=== PATIENT | female | born 1980 | race Caucasian/White ===

== ENCOUNTER 2024-01-19 14:03 | Outpatient (RCR) | payer MEDICAID, SELFPAY ==
[2024-01-07 10:29] LABS: Basophils % (Auto) 1 % (0-2.5); Eosinophils # (Auto) 0.3 Thou/mm3 (0.0-0.5); Eosinophils % (Auto) 4 % (0-10); Hematocrit 37.6 % (36.0-46.0); Hemoglobin 13.2 g/dL (12.0-16.0); Immature Granulocytes % (Auto) 0 % (0-0); Immature Granulocytes Auto 0.01 Thou/mm3 (0.00-0.00); Lymphocytes # (Auto) 1.1 Thou/mm3 (1.0-4.8); Lymphocytes % (Auto) 15 % (10-50); Mean Corpuscular HGB Conc 35.1 g/dl (31.0-37.0); Mean Corpuscular Hemoglobin 35.5 pg (25.0-35.0); Mean Corpuscular Volume 101 fL (80-100); Monocytes # (Auto) 0.4 Thou/mm3 (0.0-0.8); Monocytes % (Auto) 6 % (0-12); Neutrophils # (Auto) 5.1 Thou/mm3 (1.8-7.7); Neutrophils % (Auto) 74 % (37-80); Nucleated Red Blood Cell % 0 /100 WBC (0); Platelet Count 260 Thou/mm3 (140-440); RDW Standard Deviation 46.4 fL (36.4-46.3); Red Blood Count 3.72 Miln/mm3 (4.00-5.20)
[2024-01-07 10:48] LABS: Alanine Aminotransferase 11 U/L (10-49); Albumin, Serum 4.5 gm/dL (3.5-5.0); Albumin/Globulin Ratio 1.7 (1.2-2.2); Alkaline Phosphatase 96 U/L (46-116); Anion Gap 3 (7-16); Aspartate Amino Transferase 18 U/L (0-34); BUN/Creatinine Ratio 14 Ratio (12-20); Bilirubin,Total 0.5 mg/dL (0.3-1.2); Blood Urea Nitrogen 11 mg/dL (9-23); Calcium 10.3 mg/dL (8.3-10.6); Calcium (Corrected) 10.3 mg/dL (8.5-10.1); Carbon Dioxide 27.9 mMol/L (20.0-31.0); Chloride 106 mMol/L (98-107); Creatinine (Component) 0.8 mg/dL (0.6-1.3); Globulin 2.7 gm/dL (2.3-3.5); Glucose 90 mg/dL (74-106); Osmolality,Calculated 273 (275-295); Sodium 137 mMol/L (136-145); Total Protein 7.2 gm/dL (5.7-8.2); eGFR > 60 See Note
== END 2024-01-30 23:59 | disposition home or self-care (01) ==
LOC: SCTC 14:03
PROVIDERS: PCP Nurse Practitioner Family; Referring Provider Nurse Practitioner Family; Visit Provider Internal Medicine Hematology & Oncology
DX: C50.212 Malignant neoplasm of upper-inner quadrant of left female breast (principal); Z17.421 Hormone receptor negative with human epidermal growth factor receptor 2 negative status; R07.89 Other chest pain; Z92.3 Personal history of irradiation; Z90.12 Acquired absence of left breast and nipple; Z92.21 Personal history of antineoplastic chemotherapy; R22.2 Localized swelling, mass and lump, trunk
CPT/HCPCS: 36591; 80053; 85025; 99212; A4216; J1642; G0463

== ENCOUNTER 2024-02-02 08:01 | Outpatient (RCR) | payer MEDICAID, SELFPAY | END 2024-03-01 23:59 | disposition home or self-care (01) | LOC: SCTC 08:01 | PROVIDERS: PCP Physician Assistant; Referring Provider Physician Assistant; Visit Provider Internal Medicine Hematology & Oncology | DX: C50.212 Malignant neoplasm of upper-inner quadrant of left female breast (principal); Z17.0 Estrogen receptor positive status [ER+]; Z17.21 Progesterone receptor positive status; Z17.32 Human epidermal growth factor receptor 2 negative status | CPT/HCPCS: 36591; A4216; J1642 ==

== ENCOUNTER → 2024-02-04 | Outpatient (CLI) | payer MEDICAID, SELFPAY ==
--- NOTE | 2024-02-04 14:45 | XR_ITS ---
Examination: MRI abdomen with intravenous contrast. MRI abdomen without intravenous contrast. Date and time of exam: February 04, 2024 1549 hours INDICATIONS: Diagnosis malignant neoplasm upper inner quadrant left female breast, 31 mm hypermetabolic mass posterior to the spleen on PET CT scan 2023 Technique: Multiple axial, sagittal and coronal sections of the abdomen obtained. Transverse images, TR 6020, TE 107. T1 weighted transverse images, TR 582, TE 9.5. T2-weighted sagittal images, TR 4000, TE 105. T2-weighted sagittal images, TR 4000, TE 5. Coronal images, TR 4210, TE 107. Axial and coronal images are obtained post 19 cc intravenous injection, gadolinium. Findings: No focal liver lesions Soft tissue density is present above and posterior to the spleen, coronal image 17 and posterior to the spleen, axial image 13, measuring at least 4.3 x 3.8 cm in this area is hypermetabolic on the PET/CT study No hydronephrosis Postcontrast images demonstrate irregular enhancement of this masslike area, post contrast axial image 13 Aorta is normal in size No ascites No bowel obstruction IMPRESSION: 4.3 x 3.8 cm masslike area is present above and posterior to the spleen which shows irregular enhancement, differential would include metastatic soft tissue mass
== END | disposition home or self-care (01) ==
PROVIDERS: PCP Nurse Practitioner Family; Referring Provider Internal Medicine Hematology & Oncology; Visit Provider Internal Medicine Hematology & Oncology
DX: D73.89 Other diseases of spleen (principal); C50.212 Malignant neoplasm of upper-inner quadrant of left female breast
CPT/HCPCS: 74183; A9579

== ENCOUNTER 2024-03-28 06:56 | Outpatient (RCR) | payer MEDICAID, SELFPAY ==
--- NOTE | 2024-03-23 14:13 | CTCFLWUP_ITS ---
Patient: LYLA GARCIA : 1980 Page 2 of 2 FOLLOW UP NOTE DATE OF SERVICE: 03/23/2024 NAME: LYLA GARCIA ACCOUNT: [id number] : 1980 AGE: 44 INTERVAL HISTORY: Patient is doing well. She is here to discuss MRI results. ONCOLOGY HISTORY: DIAGNOSIS: Malignant neoplasm of upper-inner quadrant of left female breast [ICD10] C50.212 DATE OF DIAGNOSIS: 07/24/2021 STAGE/TNM: Stage II breast cancer triple negative TREATMENT HISTORY: Care?Plan Start?Date Cycle Day Intent TNBC?Pem?17?cy?TaxCar?4?cy?AC?4?cy?Keynote?522 09/18/2021 1 21 Curative?(primary) AC-Taxol?Dose?Dense?q?2wks 02/20/2022 1 14 Curative?(adjuvant) Taxol?80?mg/m2?wkly?for?12?weeks?adj 05/21/2022 1 7 Curative?(adjuvant) Taxol?80?mg/m2?wkly?for?12?weeks?adj 06/17/2022 1 7 Curative?(adjuvant) HISTORY OF PRESENT ILLNESS: Lyla Garcia is a 44-year-old ENG speaking female without any family history of breast can cers has the following oncology history. July 2020: Patient started noticing a lump in the upper inner quadrant of the left breast which was a ssociated with pain. Due to insurance reasons she was not able to see her physicians. 05/21/2021: Bilateral screening mammogram- 06/04/2021: Left breast diagnostic mammogram as well as ultrasound? 07/24/2021: Ms. Garcia had ultrasound-guided left breast biopsy and postbiopsy marker clip placement . 09/01/2021: CT scan of the chest abdomen and pelvis with IV contrast 09/06/2021: PET/CT scan 09/17/2021: AST 17, ALT 17, alkaline phosphatase 64 09/18/2021: Ms. Garcia received first cycle of pembrolizumab, Taxol and carboplatin in the adjuvant setting 10/08/2021: AST 22, ALT 31, alkaline phosphatase 66 10/09/2021: Ms. Garcia was treated with second cycle of pembrolizumab, Taxol and carboplatin based chemotherapy. Unfortunately she was having trouble tolerating the chemotherapy. Her LFTs have signi ficantly worsened. Chemotherapy was discontinued and patient was referred to Dr. Gregg Simpson for definitiv e surgery. 10/22/2021: AST 53, ALT 190, alkaline phosphatase 130. 10/28/2021 AST 435, ALT 394, alkaline phosphatase 207 10/29/2021 AST 239, ALT 366, alkaline phosphatase 208. 10/30/2021 AST 119, ALT 277, alkaline phosphatase 199 11/05/2021: AST 21, ALT 41, alkaline phosphatase 110 12/10/2021: Left-sided total mastectomy, sentinel node biopsy followed by axillary dissection. 03/19/2022: BRCA 1and2 testing? 04/02/2022 - 05/19/2022: Ms. Garcia had 4 cycles of dose dense AC chemotherapy in the adjuvant setting . 06/10/2022 - 06/24/2022: Ms. Garcia had 3 cycles of weekly Taxol. 06/25/2022: She was admitted to the hospital due to abdominal pain. Had exploratory laparotomy and re section of the ischemic left colon and closure of the distal stump as well as diuretic and loop colos new on 06/30/2022 Ms. Garcia had a protracted recovery.. She was eventually discharged from the [facility] on 08/19/2022. 05/14/2023: PET/CT scan? 05/20/2023: Ultrasound-guided biopsy of the left chest wall lesion [facility] 06/15/2023: CT-guided biopsy of the right lobe liver lesion? 07/04/2023: MRI of the abdomen with and without contrast 07/28/2023: Resection of the left chest wall lesion? 08/26/2023 - 10/27/2023: The patient had radiation therapy to the left chest wall, left left supraclavi cular area. 10/06/2023: PET/CT scan 10/15/2023: X-ray ribs showed osteoblastic lesion posterior right 10th rib. 10/28/2023: CT scan of the abdomen and pelvis with IV contrast 11/06/2023: Bone scan? 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 Tobacco?Pack?per?Day:?1 Tobacco?Use?Years:?20 ETOH?Use:?social Drug?Note:?denies Social History Note:?lives with and child [employer] HISTORY: Menarche?-?Age:?9 Menopause:?04/21/21 :?3 Live?Births:?3 Age?1st?:?15 MEDICATIONS: 1. levothyroxine - 100 mcg 1 tab Daily 2. lorazepam - 0.5 mg 1 tab Three times a day Medications Last Reconciled by Brook Alaniz MA on 03/23/2024 ALLERGIES: No Known Drug Allergies REVIEW OF SYSTEMS: A complete 14-point review of systems was performed and is negative except as noted in interval histo ry. PHYSICAL EXAMINATION: VITAL SIGNS: Temperature?99.8, B/P?116/79, Oxygen?Saturation?98% Weight?137?lbs (Change?since?03/10/24: ?-2.4?lbs) PAIN: 7 - Between severe and very severe pain Alert oriented x 4 MOUTH: Oral cavity is dry. CHEST: No palpable masses or concerning lymph nodes CARDIAC: Rhythm regular, no murmurs or gallops present. ABDOMEN: Soft. No hepatomegaly. No splenomegaly. EXTREMITIES: No pedal edema or cyanosis. LABORATORY DATA: I have personally reviewed and interpreted each of the patient?s relevant lab tests, abnormal finding s are below: Date 01/07/24 ??GLUCOSE,RANDOM?(mg/dL) 90 ??BLOOD?UREA?NITROGEN?(mg/dL) 11 ??CREATININE?(mg/dL) 0.80 ??SODIUM?(mmol/L) 137 ??POTASSIUM?(mmol/L) 4.0 ??CHLORIDE?(mmol/L) 106 ??CrCl?(CandG)?(ml/min) 84.57 ??AST/SGOT?(Unit/L) 18 ??ALT/SGPT?(Unit/L) 11 ??ALKALINE?PHOSPHATASE?(Unit/L) 96 ??BILIRUBIN,?TOTAL?(mg/dL) 0.5 ??PROTEIN?TOTAL?(gm/dl) 7.2 ??ALBUMIN,?SERUM?(gm/dl) 4.5 ??GLOBULIN?(gm/dl) 2.7 ??ALBUMIN/GLOBULIN?RATIO 1.7 ??CALCIUM,?SERUM?(mg/dL) 10.3 ??CALCIUM?SERUM?(CORRECTED)?(mg/dL) 10.3?H ASSESSMENT/PLAN: Triple negative breast cancer Patient was diagnosed in 2021 and was given keynote trial based chemotherapy Patient developed liver failure from Keytruda and treatment was held Patient resumed Taxol chemotherapy after her breast surgery After receiving the cycle she had intestinal obstruction and underwent a colectomy No further chemo was given Patient then had recurrence in July 2023 which was resected with wide margins negative. It was the sa ms triple negative breast cancer and has not NTRK mutation Patient's recent MRI and PET CT scan show persistent mass around the spleen The recent MRI compared to the MRI 3 months ago shows smaller lesion Discussed with Ms. Garcia that biopsy can become obtained IR referral placed for biopsy of the lesion behind spleen Not there are testing for residual tumor is negative PET CT scan is pending I will see his patient back with biopsy results and PET scan CBC CMP IR referral for biopsy RETURN TO CLINIC: 4 weeks BILLING AND COMPLIANCE: I reviewed external records from providers outside my specialty as summarized above. I spent a total of 50 minutes on this patient?s care on the day of their visit excluding time spent related to any bi lled procedures. This time includes time spent with the patient as well as time spent documenting in the medical record, reviewing patients records and tests, obtaining history, placing orders, communi cating with other healthcare professionals, counseling the patient, family or caregiver, and/or care coordination for the diagnoses above. Electronically Signed by: Devin Santiago MD T: 2:11 PM CC: PCP: Devin Santiago Referring: Devin Santiago This document was completed utilizing speech recognition software. Grammatical errors, random word in sertions, pronoun errors, and incomplete sentences are an occasional consequence of this system due t o software limitations, ambient noise, and hardware issues. Any formal questions or concerns about e content, text or information contained within the body of this dictation should be directly address ed to the provider for clarification.
== END 2024-04-01 23:59 | disposition home or self-care (01) ==
LOC: SCTC 06:56
PROVIDERS: PCP Nurse Practitioner Family; Referring Provider Internal Medicine Hematology & Oncology; Visit Provider Internal Medicine Hematology & Oncology
DX: C50.212 Malignant neoplasm of upper-inner quadrant of left female breast (principal); Z17.421 Hormone receptor negative with human epidermal growth factor receptor 2 negative status
CPT/HCPCS: 96523; 99212; A4216; J1642; G0463

== ENCOUNTER → 2024-03-28 | Outpatient (CLI) | payer MEDICAID, SELFPAY ==
--- NOTE | 2024-03-28 08:07 | XR_ITS ---
EXAMINATION: PET/CT FUSION SKULL TO THIGH EXAM DATE AND TIME: March 28, 2024 1446 hours Comparison January 07, 2024 INDICATIONS: Diagnosis breast cancer, post treatment restaging CTDI:vol (mGy) 3.45 DLP: (mGycm) 314.82 PROCEDURE: 15.52 mCi FDG was administered intravenously To allow for distribution and uptake of radiotracer, the patient was allowed to rest quietly in a shielded room. Imaging was performed on an integrated 16-slice PET/CT scanner, with scanning from the skull base to the mid thigh. Serum blood glucose at the time of the injection was measured 96 mg/dL. CT scanning was performed without oral or intravenous contrast material. FINDINGS: Head and Neck: There is no lev hypermetabolism in the neck. The visualized portions of the brain are normal in appearance on CT. Chest: Mild diffuse hypermetabolic activity in the left breast which may represent posttreatment findings Non hypermetabolic 8mm pulmonary nodule left upper lobe image 78 Abdomen and Pelvis: No change in the hypermetabolic focus posterior to the spleen, 30 mm Musculoskeletal: Marrow uptake is within normal range. IMPRESSION: Interval 8 mm non hypermetabolic pulmonary nodule left upper lobe Persistent 30 mm hypermetabolic activity posterior to the spleen Recommend repeat high resolution CT chest abdomen pelvis post intravenous contrast follow-up
== END | disposition home or self-care (01) ==
PROVIDERS: PCP Nurse Practitioner Family; Referring Provider Internal Medicine Hematology & Oncology; Visit Provider Internal Medicine Hematology & Oncology
DX: R91.1 Solitary pulmonary nodule (principal); D73.89 Other diseases of spleen; C50.212 Malignant neoplasm of upper-inner quadrant of left female breast
CPT/HCPCS: 78815; A9552

== ENCOUNTER 2024-04-27 07:52 | Outpatient (RCR) | payer MEDICAID, SELFPAY | END 2024-04-29 23:59 | disposition home or self-care (01) | LOC: SCTC 07:52 | PROVIDERS: PCP Nurse Practitioner Family; Referring Provider Nurse Practitioner Family; Visit Provider Internal Medicine Hematology & Oncology | DX: C50.212 Malignant neoplasm of upper-inner quadrant of left female breast (principal); Z17.421 Hormone receptor negative with human epidermal growth factor receptor 2 negative status | CPT/HCPCS: 36591; A4216; J1642 ==

== ENCOUNTER 2024-06-15 14:36 | Outpatient (RCR) | payer MEDICAID, SELFPAY ==
--- NOTE | 2024-06-20 20:02 | CTCFLWUP_ITS ---
Patient: LYLA GARCIA : 1980 Page 10 of 10 FOLLOW UP NOTE DATE OF SERVICE: 06/01/2024 NAME: LYLA GARCIA ACCOUNT: [id number] : 1980 AGE: 44 INTERVAL HISTORY: Patient is doing well. Patient here to discuss biopsy results . 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 July 2020: Patient started noticing a lump in the upper inner quadrant of the left breast which was associated with pain. Due to insurance reasons she was not able to see her physicians. 05/21/2021: Bilateral screening mammogram- 06/04/2021: Left breast diagnostic mammogram as well as ultrasound? 07/24/2021: Ms. Garcia had ultrasound-guided left breast biopsy and postbiopsy marker clip placement. 09/01/2021: CT scan of the chest abdomen and pelvis with IV contrast 09/06/2021: PET/CT scan 09/17/2021: AST 17, ALT 17, alkaline phosphatase 64 09/18/2021: Ms. Garcia received first cycle of pembrolizumab, Taxol and carboplatin in the adjuvant setting 10/08/2021: AST 22, ALT 31, alkaline phosphatase 66 10/09/2021: Ms. Garcia was treated with second cycle of pembrolizumab, Taxol and carboplatin based chemotherapy. Unfortunately she was having trouble tolerating the chemotherapy. Her LFTs have significantly worsened. Chemotherapy was discontinued and patient was referred to Dr. Gregg Simpson for definitive surgery. 10/22/2021: AST 53, ALT 190, alkaline phosphatase 130. 10/28/2021 AST 435, ALT 394, alkaline phosphatase 207 10/29/2021 AST 239, ALT 366, alkaline phosphatase 208. 10/30/2021 AST 119, ALT 277, alkaline phosphatase 199 11/05/2021: AST 21, ALT 41, alkaline phosphatase 110 12/10/2021: Left-sided total mastectomy, sentinel node biopsy followed by axillary dissection. 03/19/2022: BRCA 1and2 testing? 04/02/2022 - 05/19/2022: Ms. Garcia had 4 cycles of dose dense AC chemotherapy in the adjuvant setting. 06/10/2022 - 06/24/2022: Ms. Garcia had 3 cycles of weekly Taxol. 06/25/2022: She was admitted to the hospital due to abdominal pain. Had exploratory laparotomy and resection of the ischemic left colon and closure of the distal stump as well as diuretic and loop colostomy on 06/30/2022 Ms. Garcia had a protracted recovery.. She was eventually discharged from the hospital on 08/19/2022. 05/14/2023: PET/CT scan? 05/20/2023: Ultrasound-guided biopsy of the left chest wall lesion 05/28/2023: [facility] Cdx study? 06/15/2023: CT-guided biopsy of the right lobe liver lesion? 07/04/2023: MRI of the abdomen with and without contrast 07/28/2023: Resection of the left chest wall lesion? 08/26/2023 - 10/27/2023: The patient had radiation therapy to the left chest wall, left left supraclavicular area. 10/06/2023: PET/CT scan 10/15/2023: X-ray ribs showed osteoblastic lesion posterior right 10th rib. 10/28/2023: CT scan of the abdomen and pelvis with IV contrast 11/06/2023: Bone scan? 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 Tobacco?Pack?per?Day:?1 Tobacco?Use?Years:?20 ETOH?Use:?social Drug?Note:?denies Social History Note:?lives with and child [employer] HISTORY: Menarche?-?Age:?9 Menopause:?04/21/21 :?3 Live?Births:?3 Age?1st?:?15 MEDICATIONS: 1. hydrocodone-acetaminophen - 5-325 mg 1 tab q6 2. levothyroxine - 100 mcg 1 tab Daily 3. lorazepam - 0.5 mg 1 tab Three times a day 4. ondansetron - 8 mg 1 tab three times a day Medications Last Reconciled by Delmis Love RN on 06/08/2024 ALLERGIES: No Known Drug Allergies REVIEW OF SYSTEMS: A complete 14-point review of systems was performed and is negative except as noted in interval history. PHYSICAL EXAMINATION: VITAL SIGNS: Temperature?99, B/P?127/86, Oxygen?Saturation?96% Weight?149?lbs PAIN: 0 - No pain ECOG Performance Status: None Alert oriented x 4 MOUTH: Oral cavity is dry. CHEST: No palpable masses or concerning lymph nodes CARDIAC: Rhythm regular, no murmurs or gallops present. ABDOMEN: Soft. No hepatomegaly. No splenomegaly. EXTREMITIES: No pedal edema or cyanosis. LABORATORY DATA: I have personally reviewed and interpreted each of the patient?s relevant lab tests, abnormal findings are below: Date 11/13/23 01/07/24 ??WHITE?BLOOD?COUNT?(Thou/mm3) 7.3 7.0 ??RED?BLOOD?COUNT?(Miln/mm3) 3.88?L 3.72?L ??HEMOGLOBIN?(gm/dl) 13.5 13.2 ??HEMATOCRIT?(%) 39.5 37.6 ??PLATELET?COUNT?(Thou/mm3) 182 260 ??NEUTROPHILS?%,?AUTO?(%) 78 74 ??LYMPH?%,?AUTO?(%) 10 15 ??NEUTROPHILS,?AUTO?(Thou/mm3) 5.7 5.1 ??GLUCOSE,RANDOM?(mg/dL) 83 90 ??BLOOD?UREA?NITROGEN?(mg/dL) 6?L 11 ??CREATININE?(mg/dL) 0.80 0.80 ??SODIUM?(mmol/L) 138 137 ??POTASSIUM?(mmol/L) 3.7 4.0 ??CHLORIDE?(mmol/L) 107 106 ??CrCl?(CandG)?(ml/min) 84.83 84.57 ??AST/SGOT?(Unit/L) 18 18 ??ALT/SGPT?(Unit/L) 11 11 ??ALKALINE?PHOSPHATASE?(Unit/L) 98 96 ??BILIRUBIN,?TOTAL?(mg/dL) 0.3 0.5 ??PROTEIN?TOTAL?(gm/dl) 7.5 7.2 ??ALBUMIN,?SERUM?(gm/dl) 4.5 4.5 ??GLOBULIN?(gm/dl) 3.0 2.7 ??ALBUMIN/GLOBULIN?RATIO 1.5 1.7 ??CALCIUM,?SERUM?(mg/dL) 10.4 10.3 ??CALCIUM?SERUM?(CORRECTED)?(mg/dL) 10.4?H 10.3?H ASSESSMENT/PLAN: Triple negative breast cancer Patient was diagnosed in 2021 and was given keynote trial based chemotherapy Patient developed liver failure from Keytruda and treatment was held Patient resumed Taxol chemotherapy after her breast surgery After receiving the cycle she had intestinal obstruction and underwent a colectomy No further chemo was given Patient then had recurrence in July 2023 which was resected with wide margins negative. It was the same triple negative breast cancer and has not NTRK mutation Patient's recent MRI and PET CT scan show persistent mass around the spleen The recent MRI compared to the MRI 3 months ago shows smaller lesion Discussed with Ms. Garcia that biopsy can become obtained IR referral placed for biopsy of the lesion behind spleen and came back as negative Naterrra testing is positive Will biopsy lung lesions Patient do not want to do chemotherapy and want to wait for confirmed positive results CBC CMP IR referral for biopsy ORDERS: Order # Description [id number] MD Follow Up 3 Months [id number] MD Follow Up 6 Month RETURN TO CLINIC: 2 months BILLING AND COMPLIANCE: I reviewed external records from providers outside my specialty as summarized above. I spent a total of 50 minutes on this patient?s care on the day of their visit excluding time spent related to any billed procedures. This time includes time spent with the patient as well as time spent documenting in the medical record, reviewing patients records and tests, obtaining history, placing orders, communicating with other healthcare professionals, counseling the patient, family or caregiver, and/or care coordination for the diagnoses above. Electronically Signed by: {Object.Sanct_ID*PnP.NameFL@M}, {Object.Sanct_ID*PnP.Suffix@U} D: {Object.Sanct_Date} T: {Object.Sanct_Time} CC: PCP: Breanne Headley Referring: Breanne Headley This document was completed utilizing speech recognition software. Grammatical errors, random word insertions, pronoun errors, and incomplete sentences are an occasional consequence of this system due to software limitations, ambient noise, and hardware issues. Any formal questions or concerns about the content, text or information contained within the body of this dictation should be directly addressed to the provider for clarification.
== END 2024-06-29 23:59 | disposition home or self-care (01) ==
LOC: SCTC 14:36
PROVIDERS: PCP Nurse Practitioner Family; Referring Provider Nurse Practitioner Family; Visit Provider Radiology Therapeutic Radiology
DX: Z08 Encounter for follow-up examination after completed treatment for malignant neoplasm (principal); Z85.3 Personal history of malignant neoplasm of breast; Z92.21 Personal history of antineoplastic chemotherapy; D73.89 Other diseases of spleen; R91.1 Solitary pulmonary nodule; Z15.09 Genetic susceptibility to other malignant neoplasm; Z90.12 Acquired absence of left breast and nipple; Z92.3 Personal history of irradiation
CPT/HCPCS: 96523; 99212; A4216; J1642; G0463

== ENCOUNTER 2024-07-28 07:49 | Outpatient (RCR) | payer MEDICAID, SELFPAY ==
[2024-07-28 08:54] LABS: Basophils # (Auto) 0.1 Thou/mm3 (0.0-0.2); Basophils % (Auto) 1 % (0-2.5); Eosinophils # (Auto) 0.4 Thou/mm3 (0.0-0.5); Eosinophils % (Auto) 6 % (0-10); Hemoglobin 13.3 g/dL (12.0-16.0); Immature Granulocytes % (Auto) 0 % (0-0); Immature Granulocytes Auto 0.01 Thou/mm3 (0.00-0.00); Lymphocytes % (Auto) 15 % (10-50); Mean Corpuscular Hemoglobin 33.7 pg (25.0-35.0); Mean Corpuscular Volume 96 fL (80-100); Monocytes # (Auto) 0.4 Thou/mm3 (0.0-0.8); Monocytes % (Auto) 7 % (0-12); Neutrophils # (Auto) 4.6 Thou/mm3 (1.8-7.7); Neutrophils % (Auto) 71 % (37-80); Nucleated Red Blood Cell % 0 /100 WBC (0); Platelet Count 284 Thou/mm3 (140-440); RDW Standard Deviation 42.8 fL (36.4-46.3); Red Blood Count 3.95 Miln/mm3 (4.00-5.20); White Blood Count 6.4 Thou/mm3 (3.6-11.0)
[2024-07-28 09:16] LABS: Alanine Aminotransferase 10 U/L (10-49); Albumin, Serum 4.5 gm/dL (3.5-5.0); Albumin/Globulin Ratio 1.8 (1.2-2.2); Alkaline Phosphatase 92 U/L (46-116); Anion Gap 7 (7-16); Aspartate Amino Transferase 17 U/L (0-34); BUN/Creatinine Ratio 12 Ratio (12-20); Bilirubin,Total 0.5 mg/dL (0.3-1.2); Blood Urea Nitrogen 11 mg/dL (9-23); Calcium 9.7 mg/dL (8.3-10.6); Calcium (Corrected) 9.7 mg/dL (8.5-10.1); Carbon Dioxide 26.2 mMol/L (20.0-31.0); Chloride 107 mMol/L (98-107); Creatinine (Component) 0.9 mg/dL (0.6-1.3); Globulin 2.5 gm/dL (2.3-3.5); Glucose 104 mg/dL (74-106); Osmolality,Calculated 278 (275-295); Potassium 3.8 mMol/L (3.4-5.1); Sodium 140 mMol/L (136-145); eGFR > 60 See Note
[2024-07-28 09:32] LABS: CA 15-3 6.4 U/mL (<32.4)
== END 2024-07-30 23:59 | disposition home or self-care (01) ==
LOC: SCTC 07:49
PROVIDERS: Referring Provider Nurse Practitioner Family; Visit Provider Internal Medicine Hematology & Oncology
DX: C50.212 Malignant neoplasm of upper-inner quadrant of left female breast (principal); Z17.421 Hormone receptor negative with human epidermal growth factor receptor 2 negative status; Z90.12 Acquired absence of left breast and nipple; R91.1 Solitary pulmonary nodule; Z92.3 Personal history of irradiation
CPT/HCPCS: 36591; 80053; 85025; 86300; A4216; J1642

== ENCOUNTER 2024-08-04 13:01 | Outpatient (RCR) | payer MEDICAID, SELFPAY ==
--- NOTE | 2024-08-04 16:12 | CTCFLWUP_ITS ---
Patient: LYLA GARCIA : 1980 Page 2 of 2 FOLLOW UP NOTE DATE OF SERVICE: 08/04/2024 NAME: LYLA GARCIA ACCOUNT: [id number] : 1980 AGE: 44 INTERVAL HISTORY: Subjective: Chief Complaint Fatigue ( Just tired, always tired ), confusion episode with difficulty understanding speech 2 weeks ago, dizziness History of Present Illness Marilyn Arita, a patient with a history of stage 4 triple-negative breast cancer, presents for follow-up. She reports persistent fatigue and a recent episode of confusion and disorientation. The patient's primary complaint is ongoing fatigue, which she describes as always tired. Additionally, she experienced an unusual episode about two weeks ago characterized by sudden onset confusion. During this episode, she had difficulty understanding others and was unable to speak coherently. The patient denies hallucinations but states that nothing made sense during this event. She likens the experience to stroke-like symptoms. The patient also reports recent dizziness. Regarding her cancer status, the patient notes that her recent Netera test came back negative, which is an improvement from her previous result of 0.008. She has not been on any recent cancer treatment. Her past treatments include a total mastectomy followed by axillary dissection, 3 cycles of adjuvant Taxol, and a colectomy. The patient also mentions a previous adverse reaction to Keytruda, which resulted in colitis. In terms of lifestyle, the patient reports watching her diet and avoiding processed foods as recommended by her healthcare provider. Medications and Supplements - Taxol - 3 cycles of adjuvant treatment - Keytruda - Caused colitis as a side effect Review of Systems General: Positive for fatigue. HEENT: Positive for confusion. Neurological: Positive for dizziness. Psychiatric: Positive for hallucinations. Objective: Laboratory, Imaging, and Diagnostic Test Results - Netera test: - Previous result: 0.008 - Current result: Negative - PET scan: - Finding: small nodule in the lung and in the spleen area - MRI: - Finding: Something noted in the suppurine area (previous scan) ONCOLOGY HISTORY: DIAGNOSIS: Malignant neoplasm of upper-inner quadrant of left female breast [ICD10] C50.212 DATE OF DIAGNOSIS: 07/24/2021 STAGE/TNM: Stage II breast cancer triple negative TREATMENT HISTORY: Care?Plan Start?Date Cycle Day Intent TNBC?Pem?17?cy?TaxCar?4?cy?AC?4?cy?Keynote?522 09/18/2021 1 21 Curative?(primary) AC-Taxol?Dose?Dense?q?2wks 02/20/2022 1 14 Curative?(adjuvant) Taxol?80?mg/m2?wkly?for?12?weeks?adj 05/21/2022 1 7 Curative?(adjuvant) Taxol?80?mg/m2?wkly?for?12?weeks?adj 06/17/2022 1 7 Curative?(adjuvant) HISTORY OF PRESENT ILLNESS: Lyla Garcia is a 44-year-old ENG speaking female without any family history of breast cancers has the following oncology history. July 2020: Patient started noticing a lump in the upper inner quadrant of the left breast which was associated with pain. Due to insurance reasons she was not able to see her physicians. 05/21/2021: Bilateral screening mammogram- 06/04/2021: Left breast diagnostic mammogram as well as ultrasound? 07/24/2021: Ms. Garcia had ultrasound-guided left breast biopsy and postbiopsy marker clip placement. 09/01/2021: CT scan of the chest abdomen and pelvis with IV contrast 09/06/2021: PET/CT scan 09/17/2021: AST 17, ALT 17, alkaline phosphatase 64 09/18/2021: Ms. Garcia received first cycle of pembrolizumab, Taxol and carboplatin in the adjuvant setting 10/08/2021: AST 22, ALT 31, alkaline phosphatase 66 10/09/2021: Ms. Garcia was treated with second cycle of pembrolizumab, Taxol and carboplatin based chemotherapy. Unfortunately she was having trouble tolerating the chemotherapy. Her LFTs have significantly worsened. Chemotherapy was discontinued and patient was referred to Dr. Gregg Simpson for definitive surgery. 10/22/2021: AST 53, ALT 190, alkaline phosphatase 130. 10/28/2021 AST 435, ALT 394, alkaline phosphatase 207 10/29/2021 AST 239, ALT 366, alkaline phosphatase 208. 10/30/2021 AST 119, ALT 277, alkaline phosphatase 199 11/05/2021: AST 21, ALT 41, alkaline phosphatase 110 12/10/2021: Left-sided total mastectomy, sentinel node biopsy followed by axillary dissection. 03/19/2022: BRCA 1and2 testing? 04/02/2022 - 05/19/2022: Ms. Garcia had 4 cycles of dose dense AC chemotherapy in the adjuvant setting. 06/10/2022 - 06/24/2022: Ms. Garcia had 3 cycles of weekly Taxol. 06/25/2022: She was admitted to the hospital due to abdominal pain. Had exploratory laparotomy and resection of the ischemic left colon and closure of the distal stump as well as diuretic and loop colostomy on 06/30/2022 Ms. Garcia had a protracted recovery.. She was eventually discharged from the hospital on 08/19/2022. 05/14/2023: PET/CT scan? 05/20/2023: Ultrasound-guided biopsy of the left chest wall lesion [facility]? 06/15/2023: CT-guided biopsy of the right lobe liver lesion? 07/04/2023: MRI of the abdomen with and without contrast 07/28/2023: Resection of the left chest wall lesion? 08/26/2023 - 10/27/2023: The patient had radiation therapy to the left chest wall, left left supraclavicular area. 10/06/2023: PET/CT scan 10/15/2023: X-ray ribs showed osteoblastic lesion posterior right 10th rib. 10/28/2023: CT scan of the abdomen and pelvis with IV contrast 11/06/2023: Bone scan? 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 hydrocodone-acetaminophen - 5-325 mg 1 tab q6 2. levothyroxine - 100 mcg 1 tab Daily 3. lorazepam - 0.5 mg 1 tab Three times a day 4. ondansetron - 8 mg 1 tab three times a day Medications Last Reconciled by Candace Harley MA on 08/04/2024 ALLERGIES: No Known Drug Allergies REVIEW OF SYSTEMS: A complete 14-point review of systems was performed and is negative except as noted in interval history. PHYSICAL EXAMINATION: VITAL SIGNS: Temperature?98.2, B/P?117/77, Oxygen?Saturation?93% Weight?141?lbs (Change?since?07/28/24:?-0.4?lbs) PAIN: 0 - No pain Alert oriented x 4 MOUTH: Oral cavity is dry. CHEST: No palpable masses or concerning lymph nodes CARDIAC: Rhythm regular, no murmurs or gallops present. ABDOMEN: Soft. No hepatomegaly. No splenomegaly. EXTREMITIES: No pedal edema or cyanosis. LABORATORY DATA: I have personally reviewed and interpreted each of the patient?s relevant lab tests, abnormal findings are below: Date 01/07/24 07/28/24 ??WHITE?BLOOD?COUNT?(Thou/mm3) 7.0 6.4 ??RED?BLOOD?COUNT?(Miln/mm3) 3.72?L 3.95?L ??HEMOGLOBIN?(gm/dl) 13.2 13.3 ??HEMATOCRIT?(%) 37.6 38.0 ??PLATELET?COUNT?(Thou/mm3) 260 284 ??NEUTROPHILS?%,?AUTO?(%) 74 71 ??LYMPH?%,?AUTO?(%) 15 15 ??NEUTROPHILS,?AUTO?(Thou/mm3) 5.1 4.6 ??GLUCOSE,RANDOM?(mg/dL) 90 104 ??BLOOD?UREA?NITROGEN?(mg/dL) 11 11 ??CREATININE?(mg/dL) 0.80 0.90 ??SODIUM?(mmol/L) 137 140 ??POTASSIUM?(mmol/L) 4.0 3.8 ??CHLORIDE?(mmol/L) 106 107 ??CrCl?(CandG)?(ml/min) 84.57 79.08 ??AST/SGOT?(Unit/L) 18 17 ??ALT/SGPT?(Unit/L) 11 10 ??ALKALINE?PHOSPHATASE?(Unit/L) 96 92 ??BILIRUBIN,?TOTAL?(mg/dL) 0.5 0.5 ??PROTEIN?TOTAL?(gm/dl) 7.2 7.0 ??ALBUMIN,?SERUM?(gm/dl) 4.5 4.5 ??GLOBULIN?(gm/dl) 2.7 2.5 ??ALBUMIN/GLOBULIN?RATIO 1.7 1.8 ??CALCIUM,?SERUM?(mg/dL) 10.3 9.7 ??CALCIUM?SERUM?(CORRECTED)?(mg/dL) 10.3?H 9.7 ASSESSMENT/PLAN: Triple negative breast cancer Patient was diagnosed in 2021 and was given keynote trial based chemotherapy Patient developed liver failure from Keytruda and treatment was held Patient resumed Taxol chemotherapy after her breast surgery After receiving the cycle she had intestinal obstruction and underwent a colectomy No further chemo was given Patient then had recurrence in July 2023 which was resected with wide margins negative. It was the same triple negative breast cancer and has not NTRK mutation Patient's recent MRI and PET CT scan show persistent mass around the spleen The recent MRI compared to the MRI 3 months ago shows smaller lesion Discussed with Ms. Garcia that biopsy can become obtained IR referral placed for biopsy of the lesion behind spleen and came back as negative Triple-negative breast cancer in remission Assessment: Patient with a history of triple-negative breast cancer, status post parietal quadrant total mastectomy with axillary dissection and 3 cycles of adjuvant Taxol. Recent Netera test results have come back negative (previously 0.008), suggesting complete remission. The Netera test is considered to have high sensitivity and specificity (89% specificity, sensitivity higher than 90%). However, it is noted that the test is not 100% accurate. A previous PET scan showed a concerning 38-millimeter small nodule, which requires follow-up imaging to assess for growth or changes. Plan: - Order CT scan of the chest to reassess the previously noted lung nodule - Consider lung biopsy at [facility] if the nodule has grown to 12 mm or larger - Continue monitoring with Netera testing - Advise patient on maintaining a healthy diet, avoiding processed foods - Reassess in follow-up after imaging results are available Recent episode of confusion and dizziness Assessment: Patient reports a recent episode of confusion approximately 2 weeks ago, characterized by difficulty understanding speech and inability to speak coherently. This event is being considered as a possible hallucination. Patient also reports recent dizziness. Given the history of cancer and these neurological symptoms, further evaluation is warranted to rule out central nervous system involvement or other underlying causes. Plan: - Order MRI of the brain to evaluate for any intracranial abnormalities - Assess MRI results in context of previous imaging studies, particularly noting any changes in the suppurine area - Follow up with patient to discuss MRI results and determine if further neurological evaluation is needed ORDERS: Order # Description [id number] CT Scan + Chest + With W/O Contrast [id number] MRI + Brain + With W/O Contrast [id number] CA 15-3 + Comprehensive Metabolic Panel - 12 + CBC with Auto Diff [id number] MD Follow Up 4 Week RETURN TO CLINIC: BILLING AND COMPLIANCE: I reviewed external records from providers outside my specialty as summarized above. I spent a total of 50 minutes on this patient?s care on the day of their visit excluding time spent related to any billed procedures. This time includes time spent with the patient as well as time spent documenting in the medical record, reviewing patients records and tests, obtaining history, placing orders, communicating with other healthcare professionals, counseling the patient, family or caregiver, and/or care coordination for the diagnoses above. Electronically Signed by: Devin Santiago MD T: 4:09 PM CC: PCP: Michael Wright Referring: Michael Wright This document was completed utilizing speech recognition software. Grammatical errors, random word insertions, pronoun errors, and incomplete sentences are an occasional consequence of this system due to software limitations, ambient noise, and hardware issues. Any formal questions or concerns about the content, text or information contained within the body of this dictation should be directly addressed to the provider for clarification.
== END 2024-08-29 23:59 | disposition home or self-care (01) ==
LOC: SCTC 13:01
PROVIDERS: Visit Provider Internal Medicine Hematology & Oncology
DX: Z08 Encounter for follow-up examination after completed treatment for malignant neoplasm (principal); Z85.3 Personal history of malignant neoplasm of breast; D73.89 Other diseases of spleen; Z90.12 Acquired absence of left breast and nipple; R91.1 Solitary pulmonary nodule; R41.0 Disorientation, unspecified; R42 Dizziness and giddiness; Z92.21 Personal history of antineoplastic chemotherapy
CPT/HCPCS: 99212; G0463

== ENCOUNTER → 2024-09-03 | Outpatient (CLI) | payer MEDICAID, SELFPAY ==
--- NOTE | 2024-09-03 14:30 | XR_ITS ---
Examination: MRI of brain without intravenous contrast. MRI brain with intravenous contrast. Date and time of exam:September 03, 2024, 1558 hours Comparison September 24, 2021, PET CT scan March 28, 2024 INDICATIONS: Diagnosis malignant neoplasm upper inner quadrant left female breast, onset dizziness for months ago, headaches beginning 2 months ago Technique: Multiple axial and sagittal images of the brain to been obtained. Siemens high-resolution 1.52 Ally short bore scanner utilized. Sagittal sections, T1 weighted images, TR 500, TE 14, are performed. Axial sections proton-density and T2-weighted images have been obtained. Inversion recovery axial images, TR 9260, TE 111, TR 2500. Diffusion weighted images, axial sections, TR 4800, TE 128, B value 1000. Axial sections, ADC map, TR 4800, TE 128. Axial and coronal images were also obtained post 13 cc gadolinium administered intravenously. Findings:: Enlargement of the sella turcica is not present. The optic chiasm and infundibular stalk are not remarkable. There is no localized enlargement of the medulla or andre. Fourth ventricle and cerebellar tonsils appear normal in position. No subacute area of hemorrhage density is seen. Fourth ventricle is midline. Mass in the cerebellopontine angle region is not evident. 7th and 8th nerve complexes exhibit symmetry Globes are symmetrical Orbital musculature including medial lateral rectus muscles do not exhibit abnormality Increased white matter signal is not seen Effacement of the cortical sulcal markings is not identified. Mass effect upon the ventricular system is not identified. Diffusion-weighted images demonstrate no focus of restricted diffusion Contrast images demonstrate no abnormal enhancement Impression: Negative for acute hemorrhage mass effect or midline shift No acute infarct No MR findings diagnostic for demyelinating disease No abnormal enhancing cerebellar or cerebral lesions Moderate maxillary antral and ethmoid chronic sinusitis
== END | disposition home or self-care (01) ==
LOC: SMRI 13:52
PROVIDERS: Referring Provider Internal Medicine Hematology & Oncology; Visit Provider Internal Medicine Hematology & Oncology
DX: J32.8 Other chronic sinusitis (principal); C50.212 Malignant neoplasm of upper-inner quadrant of left female breast
CPT/HCPCS: 70553; A9579

== ENCOUNTER → 2024-09-14 | Outpatient (CLI) | payer MEDICAID, SELFPAY ==
--- NOTE | 2024-09-14 11:00 | XR_ITS ---
Examination: CT chest with intravenous contrast 2-D sagittal and coronal reconstructions Exam date and time: September 14, [address] chest abdomen pelvis July 19, 2022, PET/CT scan March 28, 2024 INDICATIONS: Diagnosis malignant neoplasm upper inner quadrant left female breast CTDI:vol (mGy) 9.02 DLP: (mGycm) 320 Technique: Multiple axial sections of the thorax have been obtained. Sections have been obtained, 3 mm slice thickness. Mediastinal and lung density settings have been obtained. Intravenous contrast administered, 60 cc Isovue-370. 2-D sagittal, coronal images obtained. Low dose protocols were performed. One or more of the following dose reduction techniques were used; automated exposure control, adjustment of the mA and/or KV according to patient size, use of iterative reconstruction technique. Findings: No thoracic aortic aneurysmal dilatation No pulmonary artery filling defects on this non-CTA study There are at least 20 bilateral pulmonary nodules throughout both lungs compared to the PET CT scan April 21, 2022 These include: 4 mm pulmonary nodule left upper lobe image 55, 3 mm pulmonary nodule right upper lobe image 88 5 mm pulmonary nodule left upper lobe image 91 8mm pulmonary nodule right upper lobe image 93 8mm pulmonary nodule right upper lobe image 108 4 mm pulmonary nodule left upper lobe image 141 10 mm pulmonary nodule left upper lobe image 150 4 mm pulmonary nodule left upper lobe image 155 3 mm pulmonary nodule right lower lobe image 159 2 mm pulmonary nodule left lower lobe image 160 5 mm pulmonary nodule left lower lobe image 196 4 mm pulmonary nodule right middle lobe image 197 5 mm pulmonary nodule right lower lobe image 205 No interval pneumonia or pulmonary edema Partially cystic mass posterior to the spleen, 4.2 cm which is at the level of the left hemidiaphragm, noted on the PET/CT scan March 28, 2024 at which time it measured 30 mm Osseous structures are intact IMPRESSION: Multiple interval metastatic pulmonary nodules compared to PET CT scan April 21, 2022 Enlarging complex mass at the level of the left hemidiaphragm compared to the PET CT scan March 28, 2024
== END | disposition home or self-care (01) ==
LOC: CCTX 10:31
PROVIDERS: Referring Provider Internal Medicine Hematology & Oncology; Visit Provider Internal Medicine Hematology & Oncology
DX: C78.02 Secondary malignant neoplasm of left lung (principal); C78.01 Secondary malignant neoplasm of right lung; C50.212 Malignant neoplasm of upper-inner quadrant of left female breast
CPT/HCPCS: 71260; A4649; Q9967

== ENCOUNTER 2024-09-26 13:11 | Outpatient (RCR) | payer MEDICAID, SELFPAY ==
--- NOTE | 2024-09-07 10:24 | CTCFLWUP_ITS ---
[facility] [address] [place], [place] [address] FOLLOW-UP NOTE Date: 09/07/2024 MR#: [id number] Name: KENNETH GARCIA : 1980 Dx: C50.212 Malignant neoplasm of upper-inner quadrant of left female breast Identification. 44-year-old lady with triple negative breast CA diagnosed 2021 neoadjuvant pembrolizumab Taxol carboplatin with chemo stopped due to rising LFT. Patient also developed intestinal obstruction underwent colectomy and no further chemo given. Total mastectomy followed by axillary dissection 12/10/2021. [id number]. PET scan 05/14/2023 interval hypermetabolic soft tissue nodule anterior sternum 18 x 14 mm. along with posterior area of the liver. 07/28/2023 underwent wide excision of chest wall recurrence performed by Dr. Escobedo 1.9 cm completely excised. Liver lesion CT-guided needle biopsy no malignancy identified. Postop left chest wall regional nodes received radiation therapy completed 10/27/2023. Patient had MRI of the brain due to symptoms of dizziness which was negative on 09/04/2024. As I see her today patient appears well. No sign of recurrence in her left chest wall regional nodes. Still having various body pains. Assessment #1 triple negative left breast CA status post neoadjuvant pembrolizumab chemo stopped due to side effects. Underwent colectomy. #2. Total mastectomy axillary dissection 12/10/2021 [id number] #3. resection for recurrence left chest wall 07/28/2023, postop XRT chest wall regional nodes completed 10/27/2023. #4. Being followed by Dr. Santiago with blood test x-ray etc.. Cures website checked hydrocodone renewed; shall see her back in 3 months time for pain management.. Electronically signed by: José Dawn M.D. 09/07/2024 10:21 AM
[2024-09-23 09:33] LABS: Basophils # (Auto) 0.1 Thou/mm3 (0.0-0.2); Basophils % (Auto) 1 % (0-2.5); Eosinophils # (Auto) 0.4 Thou/mm3 (0.0-0.5); Eosinophils % (Auto) 4 % (0-10); Hematocrit 38.9 % (36.0-46.0); Hemoglobin 13.4 g/dL (12.0-16.0); Immature Granulocytes Auto 0.02 Thou/mm3 (0.00-0.00); Lymphocytes # (Auto) 1.2 Thou/mm3 (1.0-4.8); Lymphocytes % (Auto) 15 % (10-50); Mean Corpuscular HGB Conc 34.4 g/dl (31.0-37.0); Mean Corpuscular Hemoglobin 33.6 pg (25.0-35.0); Mean Corpuscular Volume 98 fL (80-100); Monocytes # (Auto) 0.5 Thou/mm3 (0.0-0.8); Monocytes % (Auto) 7 % (0-12); Neutrophils # (Auto) 5.8 Thou/mm3 (1.8-7.7); Neutrophils % (Auto) 73 % (37-80); Nucleated Red Blood Cell # 0.00 Thou/mm3 (0.00-0.00); Nucleated Red Blood Cell % 0 /100 WBC (0); Platelet Count 283 Thou/mm3 (140-440); RDW Standard Deviation 44.6 fL (36.4-46.3); Red Blood Count 3.99 Miln/mm3 (4.00-5.20); White Blood Count 7.9 Thou/mm3 (3.6-11.0)
[2024-09-23 10:15] LABS: Alanine Aminotransferase 16 U/L (10-49); Albumin, Serum 4.5 gm/dL (3.5-5.0); Albumin/Globulin Ratio 1.6 (1.2-2.2); Alkaline Phosphatase 95 U/L (46-116); Anion Gap 8 (7-16); Aspartate Amino Transferase 23 U/L (0-34); BUN/Creatinine Ratio 14 Ratio (12-20); Bilirubin,Total 0.3 mg/dL (0.3-1.2); Blood Urea Nitrogen 13 mg/dL (9-23); Calcium 10.0 mg/dL (8.3-10.6); Calcium (Corrected) 10.0 mg/dL (8.5-10.1); Carbon Dioxide 26.7 mMol/L (20.0-31.0); Chloride 106 mMol/L (98-107); Creatinine (Component) 0.9 mg/dL (0.6-1.3); Globulin 2.8 gm/dL (2.3-3.5); Glucose 96 mg/dL (74-106); Osmolality,Calculated 281 (275-295); Potassium 4.0 mMol/L (3.4-5.1); Sodium 141 mMol/L (136-145); Total Protein 7.3 gm/dL (5.7-8.2); eGFR > 60 See Note
[2024-09-23 10:19] LABS: CA 15-3 11.3 U/mL (<32.4)
--- NOTE | 2024-10-03 04:57 | CTCFLWUP_ITS ---
Patient: LYLA GARCIA : 1980 Page 11 of 13 FOLLOW UP NOTE DATE OF SERVICE: 09/26/2024 NAME: LYLA GARCIA ACCOUNT: [id number] : 1980 AGE: 44 INTERVAL HISTORY: Marilyn Arita, a female with nausea and shortness of breath, has a history of a splenic mass. Recent CT showed multiple pulmonary nodules (20 total) compared to a single nodule in March, and a splenic cystic mass increased to 4.2 cm. Assessment included multiple pulmonary nodules of unclear etiology, enlarging splenic mass, nausea, and sinusitis. Plan includes biopsy of a 10mm left upper lobe nodule, testing for valley fever/TB/HIV, pulmonology referral, continued nausea medication, and consideration for referral to [place]. Chief Complaint Nausea occurring every other day or two days in a row, shortness of breath History of Present Illness Marilyn Arita presents with ongoing nausea and recent findings of multiple pulmonary nodules. The patient reports experiencing nausea every other day, sometimes two days in a row. The nausea is described as not strong, but causes an uneasy feeling in the stomach. The patient is currently taking nausea medication to manage symptoms. The patient also reports congestion, particularly in the mornings, requiring frequent use of tissues. Additionally, shortness of breath has been noted, prompting a referral to a sql consultant. Recent imaging studies have revealed significant changes in the patient's condition. A CT scan of the chest showed multiple nodules in both lungs, with approximately 20 nodules identified, compared to a single nodule observed in a PET scan from March 2024. A cystic mass on the spleen has increased in size from 30 cm to 33 cm, now measuring 4.2 cm. Medications and Supplements - Nausea medicine Review of Systems General: Positive for nausea. HEENT: Positive for congestion. Respiratory: Positive for shortness of breath. Gastrointestinal: Positive for uneasy stomach. Regarding her cancer status, the patient notes that her recent Netera test came back negative, which is an improvement from her previous result of 0.008. She has not been on any recent cancer treatment. Her past treatments include a total mastectomy followed by axillary dissection, 3 cycles of adjuvant Taxol, and a colectomy. The patient also mentions a previous adverse reaction to Keytruda, which resulted in colitis. In terms of lifestyle, the patient reports watching her diet and avoiding processed foods as recommended by her healthcare provider. Medications and Supplements - Taxol - 3 cycles of adjuvant treatment - Keytruda - Caused colitis as a side effect Review of Systems General: Positive for fatigue. HEENT: Positive for confusion. Neurological: Positive for dizziness. Psychiatric: Positive for hallucinations. Objective: Laboratory, Imaging, and Diagnostic Test Results - Netera test: - Previous result: 0.008 - Current result: Negative - PET scan: - Finding: small nodule in the lung and in the spleen area - MRI: - Finding: Something noted in the suppurine area (previous scan) ONCOLOGY HISTORY:?[facility] Hx? DIAGNOSIS: Malignant neoplasm of upper-inner quadrant of left female breast [ICD10] C50.212 DATE OF DIAGNOSIS: 07/24/2021 STAGE/TNM: Stage II breast cancer triple negative TREATMENT HISTORY: Care?Plan Start?Date Cycle Day Intent TNBC?Pem?17?cy?TaxCar?4?cy?AC?4?cy?Keynote?522 09/18/2021 1 21 Curative?(primary) AC-Taxol?Dose?Dense?q?2wks 02/20/2022 1 14 Curative?(adjuvant) Taxol?80?mg/m2?wkly?for?12?weeks?adj 05/21/2022 1 7 Curative?(adjuvant) Taxol?80?mg/m2?wkly?for?12?weeks?adj 06/17/2022 1 7 Curative?(adjuvant) HISTORY OF PRESENT ILLNESS: Lyla Garcia is a 44-year-old ENG speaking female without any family history of breast cancers has the following oncology history. July 2020: Patient started noticing a lump in the upper inner quadrant of the left breast which was associated with pain. Due to insurance reasons she was not able to see her physicians. 05/21/2021: Bilateral screening mammogram- 06/04/2021: Left breast diagnostic mammogram as well as ultrasound? 07/24/2021: Ms. Garcia had ultrasound-guided left breast biopsy and postbiopsy marker clip placement. 09/01/2021: CT scan of the chest abdomen and pelvis with IV contrast 09/06/2021: PET/CT scan 09/17/2021: AST 17, ALT 17, alkaline phosphatase 64 09/18/2021: Ms. Garcia received first cycle of pembrolizumab, Taxol and carboplatin in the adjuvant setting 10/08/2021: AST 22, ALT 31, alkaline phosphatase 66 10/09/2021: Ms. Garcia was treated with second cycle of pembrolizumab, Taxol and carboplatin based chemotherapy. Unfortunately she was having trouble tolerating the chemotherapy. Her LFTs have significantly worsened. Chemotherapy was discontinued and patient was referred to Dr. Gregg Simpson for definitive surgery. 10/22/2021: AST 53, ALT 190, alkaline phosphatase 130. 10/28/2021 AST 435, ALT 394, alkaline phosphatase 207 10/29/2021 AST 239, ALT 366, alkaline phosphatase 208. 10/30/2021 AST 119, ALT 277, alkaline phosphatase 199 11/05/2021: AST 21, ALT 41, alkaline phosphatase 110 12/10/2021: Left-sided total mastectomy, sentinel node biopsy followed by axillary dissection. 03/19/2022: BRCA 1and2 testing? 04/02/2022 - 05/19/2022: Ms. Garcia had 4 cycles of dose dense AC chemotherapy in the adjuvant setting. 06/10/2022 - 06/24/2022: Ms. Garcia had 3 cycles of weekly Taxol. 06/25/2022: She was admitted to the hospital due to abdominal pain. Had exploratory laparotomy and resection of the ischemic left colon and closure of the distal stump as well as diuretic and loop colostomy on 06/30/2022 Ms. Garcia had a protracted recovery.. She was eventually discharged from the hospital on 08/19/2022. 05/14/2023: PET/CT scan? 05/20/2023: Ultrasound-guided biopsy of the left chest wall lesion 05/28/2023: UsingMiles Cdx study? 06/15/2023: CT-guided biopsy of the right lobe liver lesion? 07/04/2023: MRI of the abdomen with and without contrast 07/28/2023: Resection of the left chest wall lesion? 08/26/2023 - 10/27/2023: The patient had radiation therapy to the left chest wall, left left supraclavicular area. 10/06/2023: PET/CT scan 10/15/2023: X-ray ribs showed osteoblastic lesion posterior right 10th rib. 10/28/2023: CT scan of the abdomen and pelvis with IV contrast 11/06/2023: Bone scan? 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 Tobacco?Pack?per?Day:?1 Tobacco?Use?Years:?20 ETOH?Use:?social Drug?Note:?denies Social History Note:?lives with and child [employer] HISTORY: Menarche?-?Age:?9 Menopause:?04/21/21 :?3 Live?Births:?3 Age?1st?:?15 MEDICATIONS: 1. hydrocodone-acetaminophen - 5-325 mg 1 tab q6 2. levothyroxine - 100 mcg 1 tab Daily 3. lorazepam - 0.5 mg 1 tab Three times a day 4. ondansetron - 8 mg 1 tab Daily?Palabra Meds? Medications Last Reconciled by Candace Harley MA on 09/26/2024 ALLERGIES: No Known Drug Allergies REVIEW OF SYSTEMS: A complete 14-point review of systems was performed and is negative except as noted in interval history. PHYSICAL EXAMINATION:?[facility] PE? VITAL SIGNS: Temperature?98.2, B/P?130/90, Oxygen?Saturation?99% PAIN: 0 - No pain ECOG Performance Status: 1 - Symptomatic; ambulatory; restricted in strenuous activity Alert oriented x 4 MOUTH: Oral cavity is dry. CHEST: No palpable masses or concerning lymph nodes CARDIAC: Rhythm regular, no murmurs or gallops present. ABDOMEN: Soft. No hepatomegaly. No splenomegaly. EXTREMITIES: No pedal edema or cyanosis. LABORATORY DATA: I have personally reviewed and interpreted each of the patient?s relevant lab tests, abnormal findings are below: Date 07/28/24 09/23/24 ??WHITE?BLOOD?COUNT?(Thou/mm3) 6.4 7.9 ??RED?BLOOD?COUNT?(Miln/mm3) 3.95?L 3.99?L ??HEMOGLOBIN?(gm/dl) 13.3 13.4 ??HEMATOCRIT?(%) 38.0 38.9 ??PLATELET?COUNT?(Thou/mm3) 284 283 ??NEUTROPHILS?%,?AUTO?(%) 71 73 ??LYMPH?%,?AUTO?(%) 15 15 ??NEUTROPHILS,?AUTO?(Thou/mm3) 4.6 5.8 ??GLUCOSE,RANDOM?(mg/dL) 104 96 ??BLOOD?UREA?NITROGEN?(mg/dL) 11 13 ??CREATININE?(mg/dL) 0.90 0.90 ??SODIUM?(mmol/L) 140 141 ??POTASSIUM?(mmol/L) 3.8 4.0 ??CHLORIDE?(mmol/L) 107 106 ??CrCl?(CandG)?(ml/min) 79.08 79.64 ??AST/SGOT?(Unit/L) 17 23 ??ALT/SGPT?(Unit/L) 10 16 ??ALKALINE?PHOSPHATASE?(Unit/L) 92 95 ??BILIRUBIN,?TOTAL?(mg/dL) 0.5 0.3 ??PROTEIN?TOTAL?(gm/dl) 7.0 7.3 ??ALBUMIN,?SERUM?(gm/dl) 4.5 4.5 ??GLOBULIN?(gm/dl) 2.5 2.8 ??ALBUMIN/GLOBULIN?RATIO 1.8 1.6 ??CALCIUM,?SERUM?(mg/dL) 9.7 10.0 ??CALCIUM?SERUM?(CORRECTED)?(mg/dL) 9.7 10.0 ASSESSMENT/PLAN:?Leandra Santiago Assessment/Plan? Triple negative breast cancer Patient was diagnosed in 2021 and was given keynote trial based chemotherapy Patient developed liver failure from Keytruda and treatment was held Patient resumed Taxol chemotherapy after her breast surgery After receiving the cycle she had intestinal obstruction and underwent a colectomy No further chemo was given Patient then had recurrence in July 2023 which was resected with wide margins negative. It was the same triple negative breast cancer and has not NTRK mutation Patient's recent MRI and PET CT scan show persistent mass around the spleen The recent MRI compared to the MRI 3 months ago shows smaller lesion Discussed with Ms. Garcia that biopsy can become obtained IR referral placed for biopsy of the lesion behind spleen and came back as negative Marilyn Lyla presents with intermittent nausea, shortness of breath, and multiple pulmonary nodules discovered on recent imaging studies. Multiple Pulmonary Nodules Assessment: Recent CT scan revealed approximately 20 nodules in both lungs, a significant increase from the single nodule observed in the left lung on PET scan in March 2024. The pulmonary nodules are small and not visible on PET scans. A 10 mm nodule in the left upper lobe has been identified for biopsy. The etiology of these nodules remains unclear, necessitating further investigation. Plan: - Order biopsy of 10 mm nodule in left upper lobe - Test for valley fever, TB, HIV, and cocci - Refer to sql consultant for evaluation of shortness of breath - Schedule follow-up CT scan in November to monitor nodule growth - Consider referral to [place] or [facility] for further evaluation and management Splenic Mass Assessment: CT scan shows a cystic mass on the spleen that has increased from 30 cm to 33 cm, now measuring 4.2 cm. A biopsy performed in April was negative. Natira testing was negative in June after previously being positive. Plan: - Await results of another Natira test - Consider referral to [place], [facility], or [place] for further evaluation and possible biopsy if indicated Nausea Assessment: Patient reports intermittent nausea occurring every other day, sometimes two days in a row. The nausea is described as mild with an uneasy stomach sensation. Plan: - Continue current nausea medication (specifics not mentioned) - Monitor symptoms and adjust treatment as necessary Sinusitis Assessment: Brain MRI, performed to rule out metastatic disease, incidentally revealed sinusitis. Patient reports congestion and frequent use of tissues in the morning. Plan: - Monitor symptoms - Consider treatment if symptoms persist or worsen (specific treatment not discussed) Triple-negative breast cancer in remission Assessment: Patient with a history of triple-negative breast cancer, status post parietal quadrant total mastectomy with axillary dissection and 3 cycles of adjuvant Taxol. Recent Netera test results have come back negative (previously 0.008), suggesting complete remission. The Netera test is considered to have high sensitivity and specificity (89% specificity, sensitivity higher than 90%). However, it is noted that the test is not 100% accurate. A previous PET scan showed a concerning 38-millimeter small nodule, which requires follow-up imaging to assess for growth or changes. Plan: - Order CT scan of the chest to reassess the previously noted lung nodule - Consider lung biopsy at [facility] if the nodule has grown to 12 mm or larger - Continue monitoring with Netera testing - Advise patient on maintaining a healthy diet, avoiding processed foods - Reassess in follow-up after imaging results are available Recent episode of confusion and dizziness Assessment: Patient reports a recent episode of confusion approximately 2 weeks ago, characterized by difficulty understanding speech and inability to speak coherently. This event is being considered as a possible hallucination. Patient also reports recent dizziness. Given the history of cancer and these neurological symptoms, further evaluation is warranted to rule out central nervous system involvement or other underlying causes. Plan: - Order MRI of the brain to evaluate for any intracranial abnormalities - Assess MRI results in context of previous imaging studies, particularly noting any changes in the suppurine area - Follow up with patient to discuss MRI results and determine if further neurological evaluation is needed ORDERS: Order # Description [id number] QuantiFERON-TB Gold Plus ([facility] TEST:[id number] CPT: 82853) + Antibody; Coccidioides Immitis + HIV-1/HIV-2 Single Assay + Rheumatoid Factor [id number] Follow Up 2 Months RETURN TO CLINIC: I reviewed the diagnosis, prognosis, and recommended treatment/procedure options with the patient (and/or their legal telephone service representative), including the potential benefits, risks, side effects and alternative therapies. We also discussed the option of no treatment and the possibility of clinical trial participation, if applicable. All questions were addressed, and they demonstrated understanding. They provided informed consent to proceed with the proposed plan of care. BILLING AND COMPLIANCE: I reviewed external records from providers outside my specialty as summarized above. I spent a total of 50 minutes on this patient?s care on the day of their visit excluding time spent related to any billed procedures. This time includes time spent with the patient as well as time spent documenting in the medical record, reviewing patients records and tests, obtaining history, placing orders, communicating with other healthcare professionals, counseling the patient, family or caregiver, and/or care coordination for the diagnoses above. Electronically Signed by: Devin Santiago MD T: 4:54 AM CC: José?Nereyda? PCP: No Primary/family, Physician Referring: José Dawn This document was completed utilizing speech recognition software. Grammatical errors, random word insertions, pronoun errors, and incomplete sentences are an occasional consequence of this system due to software limitations, ambient noise, and hardware issues. Any formal questions or concerns about the content, text or information contained within the body of this dictation should be directly addressed to the provider for clarification.
== END 2024-09-29 23:59 | disposition home or self-care (01) ==
LOC: SCTC 13:11
PROVIDERS: Internal Medicine Hematology & Oncology; Referring Provider Radiology Therapeutic Radiology; Visit Provider Radiology Therapeutic Radiology
DX: C50.212 Malignant neoplasm of upper-inner quadrant of left female breast (principal); Z17.421 Hormone receptor negative with human epidermal growth factor receptor 2 negative status; Z87.19 Personal history of other diseases of the digestive system; Z90.49 Acquired absence of other specified parts of digestive tract; D73.89 Other diseases of spleen; R91.8 Other nonspecific abnormal finding of lung field; R11.0 Nausea; R42 Dizziness and giddiness; R41.0 Disorientation, unspecified
CPT/HCPCS: 36591; 80053; 85025; 86300; 99212; 99213; A4216; J1642; G0463

== ENCOUNTER 2024-10-19 07:40 | Outpatient (RCR) | payer MEDICAID, SELFPAY | END 2024-10-30 23:59 | disposition home or self-care (01) | LOC: SCTC 07:40 | PROVIDERS: Visit Provider Radiology Therapeutic Radiology | DX: C50.212 Malignant neoplasm of upper-inner quadrant of left female breast (principal); Z17.421 Hormone receptor negative with human epidermal growth factor receptor 2 negative status; R91.8 Other nonspecific abnormal finding of lung field; R16.1 Splenomegaly, not elsewhere classified; R11.0 Nausea; R42 Dizziness and giddiness | CPT/HCPCS: 36591; A4216; J1642 ==

== ENCOUNTER → 2024-11-23 | Outpatient (CLI) | payer MEDICAID, SELFPAY ==
--- NOTE | 2024-11-23 08:00 | XR_ITS ---
Examination: MRI of brain without intravenous contrast. MRI brain with intravenous contrast. Date and time of exam:November 23, 2024, 0824 hours, comparison September 03, 2024 INDICATIONS: Diagnosis malignant neoplasm upper inner quadrant left female breast, posterior daily headaches dizziness episodes numbness in the fingers since March 2024 Technique: Multiple axial and sagittal images of the brain to been obtained. Siemens high-resolution 1.52 Ally short bore scanner utilized. Sagittal sections, T1 weighted images, TR 500, TE 14, are performed. Axial sections proton-density and T2-weighted images have been obtained. Inversion recovery axial images, TR 9260, TE 111, TR 2500. Diffusion weighted images, axial sections, TR 4800, TE 128, B value 1000. Axial sections, ADC map, TR 4800, TE 128. Axial and coronal images were also obtained post 13 cc gadolinium administered intravenously. Findings:: Enlargement of the sella turcica is not present. The optic chiasm and infundibular stalk are not remarkable. There is no localized enlargement of the medulla or andre. Fourth ventricle and cerebellar tonsils appear normal in position. No subacute area of hemorrhage density is seen. Fourth ventricle is midline. Mass in the cerebellopontine angle region is not evident. 7th and 8th nerve complexes exhibit symmetry Globes are symmetrical Orbital musculature including medial lateral rectus muscles do not exhibit abnormality Increased white matter signal is not seen Effacement of the cortical sulcal markings is not identified. Mass effect upon the ventricular system is not identified. Diffusion-weighted images demonstrate no focus of restricted diffusion Contrast images demonstrate no abnormal enhancement Impression: Negative for acute hemorrhage mass effect or midline shift No acute infarct. No MR findings diagnostic for demyelinating disease. Significant chronic ethmoid sinusitis. No abnormal enhancing cerebellar or cerebral lesions
== END | disposition home or self-care (01) ==
PROVIDERS: Referring Provider Internal Medicine Hematology & Oncology; Visit Provider Internal Medicine Hematology & Oncology
DX: J32.2 Chronic ethmoidal sinusitis (principal); C50.212 Malignant neoplasm of upper-inner quadrant of left female breast
CPT/HCPCS: 70553; A9577

== ENCOUNTER 2024-12-15 09:34 | Outpatient (RCR) | payer MEDICAID, SELFPAY ==
[2024-12-09 10:40] LABS: Basophils # (Auto) 0.1 Thou/mm3 (0.0-0.2); Basophils % (Auto) 1 % (0-2.5); Eosinophils # (Auto) 0.4 Thou/mm3 (0.0-0.5); Eosinophils % (Auto) 6 % (0-10); Hematocrit 39.4 % (36.0-46.0); Hemoglobin 13.4 g/dL (12.0-16.0); Immature Granulocytes Auto 0.02 Thou/mm3 (0.00-0.00); Lymphocytes # (Auto) 1.3 Thou/mm3 (1.0-4.8); Lymphocytes % (Auto) 18 % (10-50); Mean Corpuscular HGB Conc 34.0 g/dl (31.0-37.0); Mean Corpuscular Hemoglobin 33.3 pg (25.0-35.0); Mean Corpuscular Volume 98 fL (80-100); Monocytes # (Auto) 0.4 Thou/mm3 (0.0-0.8); Monocytes % (Auto) 6 % (0-12); Neutrophils # (Auto) 4.9 Thou/mm3 (1.8-7.7); Neutrophils % (Auto) 70 % (37-80); Nucleated Red Blood Cell # 0.00 Thou/mm3 (0.00-0.00); Nucleated Red Blood Cell % 0 /100 WBC (0); Platelet Count 297 Thou/mm3 (140-440); RDW Standard Deviation 43.4 fL (36.4-46.3); Red Blood Count 4.03 Miln/mm3 (4.00-5.20); White Blood Count 7.1 Thou/mm3 (3.6-11.0)
[2024-12-09 10:48] LABS: Alanine Aminotransferase 13 U/L (10-49); Albumin, Serum 4.8 gm/dL (3.5-5.0); Albumin/Globulin Ratio 1.6 (1.2-2.2); Alkaline Phosphatase 90 U/L (46-116); Anion Gap 7 (7-16); Aspartate Amino Transferase 20 U/L (0-34); BUN/Creatinine Ratio 11 Ratio (12-20); Bilirubin,Total 0.5 mg/dL (0.3-1.2); Blood Urea Nitrogen 10 mg/dL (9-23); Calcium 10.3 mg/dL (8.3-10.6); Calcium (Corrected) 10.3 mg/dL (8.5-10.1); Carbon Dioxide 26.6 mMol/L (20.0-31.0); Chloride 107 mMol/L (98-107); Creatinine (Component) 0.9 mg/dL (0.6-1.3); Globulin 3.0 gm/dL (2.3-3.5); Glucose 89 mg/dL (74-106); Osmolality,Calculated 279 (275-295); Potassium 3.6 mMol/L (3.4-5.1); Sodium 141 mMol/L (136-145); Total Protein 7.8 gm/dL (5.7-8.2); eGFR > 60 See Note
[2024-12-09 11:05] LABS: CA 15-3 8.8 U/mL (<32.4)
--- NOTE | 2024-12-19 10:43 | CTCFLWUP_ITS ---
Patient: LYLA BECKETT : 1980 Page 10 of 12 FOLLOW UP NOTE DATE OF SERVICE: 12/15/2024 NAME: LYLA BECKETT ACCOUNT: [id number] : 1980 AGE: 44 INTERVAL HISTORY: Marilyn Arita, a female with nausea and shortness of breath, has a history of a splenic mass. Recent CT showed multiple pulmonary nodules (20 total) compared to a single nodule in March, and a splenic cystic mass increased to 4.2 cm. pulmonary nodules biopsy showed metastatic carcinoma of breast . ER/NH/HER-2 negaitve. 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 Patient is very reluctant to get chemotherapy. Recent imaging studies have revealed significant changes in the patient's condition. A CT scan of the chest showed multiple nodules in both lungs, with approximately 20 nodules identified, compared to a single nodule observed in a PET scan from March 2024. A cystic mass on the spleen has increased in size from 30 cm to 33 cm, now measuring 4.2 cm. Medications and Supplements - Nausea medicine 44-year-old lady with triple negative left breast CA diagnosed 2021 with neoadjuvant pembrolizumab Taxol carboplatin with chemo stopped due to rising LFTs. Patient also developed intestinal obstruction underwent colectomy and no further chemo given. Total mastectomy followed by axillary dissection 12/10/2021 [id number]. PET scan 05/14/2023 interval hypermetabolic soft tissue nodule anterior sternum 18 x 14 mm along with posterior liver. Underwent wide excision of chest wall recurrence 07/20/[address] Escobedo 1.9 cm completely excised. Liver lesion CT-guided needle biopsy no malignancy identified. Postop left chest wall and regional node radiation therapy completed 10/27/2023. CT chest 09/14/2024 multiple metastatic pulmonary nodules compared to prior PET enlarging complex mass at the level of left diaphragm compared to prior PET.Most recent MRI of the brain 11/23/2024 negative for mets. Signatera negative 10/21/2024. Review of Systems General: Positive for nausea. HEENT: Positive for congestion. Respiratory: Positive for shortness of breath. Gastrointestinal: Positive for uneasy stomach. Regarding her cancer status, the patient notes that her recent Netera test came back negative, which is an improvement from her previous result of 0.008. She has not been on any recent cancer treatment. Her past treatments include a total mastectomy followed by axillary dissection, 3 cycles of adjuvant Taxol, and a colectomy. The patient also mentions a previous adverse reaction to Keytruda, which resulted in colitis. In terms of lifestyle, the patient reports watching her diet and avoiding processed foods as recommended by her healthcare provider. Medications and Supplements - Taxol - 3 cycles of adjuvant treatment - Keytruda - Caused colitis as a side effect Review of Systems General: Positive for fatigue. HEENT: Positive for confusion. Neurological: Positive for dizziness. Psychiatric: Positive for hallucinations. Objective: Laboratory, Imaging, and Diagnostic Test Results - Netera test: - Previous result: 0.008 - Current result: Negative - PET scan: - Finding: small nodule in the lung and in the spleen area - MRI: - Finding: Something noted in the suppurine area (previous scan) ONCOLOGY HISTORY:?[facility] Hx? DIAGNOSIS: Malignant neoplasm of upper-inner quadrant of left female breast [ICD10] C50.212 DATE OF DIAGNOSIS: 07/24/2021 STAGE/TNM: Stage II breast cancer triple negative TREATMENT HISTORY: Care?Plan Start?Date Cycle Day Intent TNBC?Pem?17?cy?TaxCar?4?cy?AC?4?cy?Keynote?522 09/18/2021 1 21 Curative?(primary) AC-Taxol?Dose?Dense?q?2wks 02/20/2022 1 14 Curative?(adjuvant) Taxol?80?mg/m2?wkly?for?12?weeks?adj 05/21/2022 1 7 Curative?(adjuvant) Taxol?80?mg/m2?wkly?for?12?weeks?adj 06/17/2022 1 7 Curative?(adjuvant) HISTORY OF PRESENT ILLNESS: Lyla Beckett is a 44-year-old ENG speaking female without any family history of breast cancers has the following oncology history. July 2020: Patient started noticing a lump in the upper inner quadrant of the left breast which was associated with pain. Due to insurance reasons she was not able to see her physicians. 05/21/2021: Bilateral screening mammogram- 06/04/2021: Left breast diagnostic mammogram as well as ultrasound? 07/24/2021: Ms. Beckett had ultrasound-guided left breast biopsy and postbiopsy marker clip placement. 09/01/2021: CT scan of the chest abdomen and pelvis with IV contrast 09/06/2021: PET/CT scan 09/17/2021: AST 17, ALT 17, alkaline phosphatase 64 09/18/2021: Ms. Beckett received first cycle of pembrolizumab, Taxol and carboplatin in the adjuvant setting 10/08/2021: AST 22, ALT 31, alkaline phosphatase 66 10/09/2021: Ms. Beckett was treated with second cycle of pembrolizumab, Taxol and carboplatin based chemotherapy. Unfortunately she was having trouble tolerating the chemotherapy. Her LFTs have significantly worsened. Chemotherapy was discontinued and patient was referred to Dr. Gregg Simpson for definitive surgery. 10/22/2021: AST 53, ALT 190, alkaline phosphatase 130. 10/28/2021 AST 435, ALT 394, alkaline phosphatase 207 10/29/2021 AST 239, ALT 366, alkaline phosphatase 208. 10/30/2021 AST 119, ALT 277, alkaline phosphatase 199 11/05/2021: AST 21, ALT 41, alkaline phosphatase 110 12/10/2021: Left-sided total mastectomy, sentinel node biopsy followed by axillary dissection. 03/19/2022: BRCA 1and2 testing? 04/02/2022 - 05/19/2022: Ms. Beckett had 4 cycles of dose dense AC chemotherapy in the adjuvant setting. 06/10/2022 - 06/24/2022: Ms. Beckett had 3 cycles of weekly Taxol. 06/25/2022: She was admitted to the hospital due to abdominal pain. Had exploratory laparotomy and resection of the ischemic left colon and closure of the distal stump as well as diuretic and loop colostomy on 06/30/2022 Ms. Beckett had a protracted recovery.. She was eventually discharged from the hospital on 08/19/2022. 05/14/2023: PET/CT scan? 05/20/2023: Ultrasound-guided biopsy of the left chest wall lesion 05/28/2023: Pixc Cdx study? 06/15/2023: CT-guided biopsy of the right lobe liver lesion? 07/04/2023: MRI of the abdomen with and without contrast 07/28/2023: Resection of the left chest wall lesion? 08/26/2023 - 10/27/2023: The patient had radiation therapy to the left chest wall, left left supraclavicular area. 10/06/2023: PET/CT scan 10/15/2023: X-ray ribs showed osteoblastic lesion posterior right 10th rib. 10/28/2023: CT scan of the abdomen and pelvis with IV contrast 11/06/2023: Bone scan? 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 entrectinib - 200 mg 3 Capsule Daily 2. hydrocodone-acetaminophen - 5-325 mg 1 tab q6 3. levothyroxine - 100 mcg 1 tab Daily 4. lorazepam - 0.5 mg 1 tab Three times a day 5. ondansetron - 8 mg 1 tab Daily?Palabra Meds? Medications Last Reconciled by Brook Romeo MD on 12/15/2024 ALLERGIES: No Known Drug Allergies REVIEW OF SYSTEMS: A complete 14-point review of systems was performed and is negative except as noted in interval history. PHYSICAL EXAMINATION:?[facility] PE? VITAL SIGNS: Temperature?96.2, B/P?126/82, Oxygen?Saturation?99% Weight?145?lbs (Change?since?12/13/24:?0?lbs) PAIN: 4 - Moderate pain ECOG Performance Status: 0 - Asymptomatic and fully active Alert oriented x 4 MOUTH: Oral cavity is dry. CHEST: No palpable masses or concerning lymph nodes CARDIAC: Rhythm regular, no murmurs or gallops present. ABDOMEN: Soft. No hepatomegaly. No splenomegaly. EXTREMITIES: No pedal edema or cyanosis. LABORATORY DATA: I have personally reviewed and interpreted each of the patient?s relevant lab tests, abnormal findings are below: Date 09/23/24 12/09/24 ??WHITE?BLOOD?COUNT?(Thou/mm3) 7.9 7.1 ??RED?BLOOD?COUNT?(Miln/mm3) 3.99?L 4.03 ??HEMOGLOBIN?(gm/dl) 13.4 13.4 ??HEMATOCRIT?(%) 38.9 39.4 ??PLATELET?COUNT?(Thou/mm3) 283 297 ??NEUTROPHILS?%,?AUTO?(%) 73 70 ??LYMPH?%,?AUTO?(%) 15 18 ??NEUTROPHILS,?AUTO?(Thou/mm3) 5.8 4.9 ??GLUCOSE,RANDOM?(mg/dL) 96 89 ??BLOOD?UREA?NITROGEN?(mg/dL) 13 10 ??CREATININE?(mg/dL) 0.90 0.90 ??SODIUM?(mmol/L) 141 141 ??POTASSIUM?(mmol/L) 4.0 3.6 ??CHLORIDE?(mmol/L) 106 107 ??CrCl?(CandG)?(ml/min) 79.64 70.39 ??AST/SGOT?(Unit/L) 23 20 ??ALT/SGPT?(Unit/L) 16 13 ??ALKALINE?PHOSPHATASE?(Unit/L) 95 90 ??BILIRUBIN,?TOTAL?(mg/dL) 0.3 0.5 ??PROTEIN?TOTAL?(gm/dl) 7.3 7.8 ??ALBUMIN,?SERUM?(gm/dl) 4.5 4.8 ??GLOBULIN?(gm/dl) 2.8 3.0 ??ALBUMIN/GLOBULIN?RATIO 1.6 1.6 ??CALCIUM,?SERUM?(mg/dL) 10.0 10.3 ??CALCIUM?SERUM?(CORRECTED)?(mg/dL) 10.0 10.3?H ASSESSMENT/PLAN:?Leandra Santiago Assessment/Plan? Triple negative breast cancer Patient was diagnosed in 2021 and was given keynote trial based chemotherapy Patient developed liver failure from Keytruda and treatment was held Patient resumed Taxol chemotherapy after her breast surgery After receiving the cycle she had intestinal obstruction and underwent a colectomy No further chemo was given Patient then had recurrence in July 2023 which was resected with wide margins negative. It was the same triple negative breast cancer and has not NTRK mutation Patient's recent MRI and PET CT scan show persistent mass around the spleen The recent MRI compared to the MRI 3 months ago shows smaller lesion Recent CT scan revealed approximately 20 nodules in both lungs, a significant increase from the single nodule observed in the left lung on PET scan in March 2024. The pulmonary nodules are small and not visible on PET scans. A 10 mm nodule in the left upper lobe has been identified for biopsy. Biopsy of the lung nodule is consistent with metastatic cancer coming from breast Last biopsy did show an NTRK mutation Will run NGS panel on the lung biopsy In the meantime we will start patient on entrectinib Patient do not want to get chemotherapy or immunotherapy as had side effects from both Splenic Mass Assessment: CT scan shows a cystic mass on the spleen that has increased from 30 cm to 33 cm, now measuring 4.2 cm. A biopsy performed in April was negative. Natira testing was negative in June after previously being positive. 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 We also discussed the option of no treatment and the possibility of clinical trial participation, if applicable. All questions were addressed, and they demonstrated understanding. They provided informed consent to proceed with the proposed plan of care. BILLING AND COMPLIANCE: I reviewed external records from providers outside my specialty as summarized above. I spent a total of 50 minutes on this patient?s care on the day of their visit excluding time spent related to any billed procedures. This time includes time spent with the patient as well as time spent documenting in the medical record, reviewing patients records and tests, obtaining history, placing orders, communicating with other healthcare professionals, counseling the patient, family or caregiver, and/or care coordination for the diagnoses above. Electronically Signed by: Devin Santiago MD T: 10:41 AM CC: José?Nereyda? PCP: Michael Wright Referring: Michael Wright This document was completed utilizing speech recognition software. Grammatical errors, random word insertions, pronoun errors, and incomplete sentences are an occasional consequence of this system due to software limitations, ambient noise, and hardware issues. Any formal questions or concerns about the content, text or information contained within the body of this dictation should be directly addressed to the provider for clarification.
== END 2024-12-30 23:59 | disposition home or self-care (01) ==
LOC: SCTC 09:34
PROVIDERS: Visit Provider Internal Medicine Hematology & Oncology
DX: C50.212 Malignant neoplasm of upper-inner quadrant of left female breast (principal); C78.89 Secondary malignant neoplasm of other digestive organs; C78.02 Secondary malignant neoplasm of left lung; C78.01 Secondary malignant neoplasm of right lung; Z17.421 Hormone receptor negative with human epidermal growth factor receptor 2 negative status; Z87.19 Personal history of other diseases of the digestive system; Z90.49 Acquired absence of other specified parts of digestive tract; Z92.21 Personal history of antineoplastic chemotherapy; Z90.12 Acquired absence of left breast and nipple; Z92.3 Personal history of irradiation
CPT/HCPCS: 36591; 80053; 85025; 86300; 99212; A4216; J1642; G0463

== ENCOUNTER → 2024-12-30 | Outpatient (CLI) | payer MEDICAID, SELFPAY ==
--- NOTE | 2024-12-30 15:00 | XR_ITS ---
Examination: CT chest with intravenous contrast CT chest without intravenous contrast 2-D reconstructions Date and time of exam: December 30, 2024, 1612 hours, comparison September 14, 2024, PET/CT scan March 28, 2024 INDICATIONS: Left breast carcinoma diagnosed in 2020 with metastases to the lung, history of left mastectomy, multiple pulmonary nodules on CT chest September 14, 2024 CTDI:vol (mGy) 21.0 DLP: (mGycm) 723 Technique: Multiple axial sections of the thorax have been obtained. 3 mm slice thickness, from the hemidiaphragms to above the apices of the lungs. Mediastinal and lung density settings have been obtained. Intravenous contrast administered 60 cc Isovue-370. Noncontrast images have also been obtained. 2-D sagittal coronal images obtained. Low dose protocols were performed. One or more of the following dose reduction techniques were used; automated exposure control, adjustment of the mA and/or KV according to patient size, use of iterative reconstruction technique. Findings: No thoracic aortic aneurysmal dilatation or dissection No pulmonary artery filling defects No paratracheal tracheobronchial or bronchopulmonary adenopathy Numerous bilateral pulmonary nodules Several of the nodules have increased in size, for instance left upper lobe pulmonary nodule 9 mm compared to 3 mm on September 14, 2024, right upper lobe pulmonary nodule 6 mm compared to 3 mm on September 14, 2024, right upper lobe posterior pulmonary nodule 5 mm compared to 3 mm on September 14, 2024, left lower lobe pulmonary nodule 6 mm compared to 4 mm on September 14, 2024 New 2 to 3 mm pulmonary nodules No paratracheal tracheobronchial or bronchopulmonary adenopathy Again noted cystic mass at the level of the left hemidiaphragm without significant change in size No focal liver splenic lesions No gallstones No pancreatic mass No adrenal mass Moderate thoracic spondylosis IMPRESSION: Progression of pulmonary nodular metastatic disease compared with September 14, 2024
== END | disposition home or self-care (01) ==
LOC: SCAT 14:37
PROVIDERS: Referring Provider Internal Medicine Hematology & Oncology; Visit Provider Internal Medicine Hematology & Oncology
DX: C78.00 Secondary malignant neoplasm of unspecified lung (principal); C50.212 Malignant neoplasm of upper-inner quadrant of left female breast
CPT/HCPCS: 71270; A4649; Q9967

== ENCOUNTER → 2025-01-02 | Outpatient (CLI) | payer MEDICAID, SELFPAY ==
--- NOTE | 2025-01-02 12:00 | XR_ITS ---
EXAMINATION: MRI abdomen with intravenous contrast TECHNIQUE: Multiple axial sagittal coronal MR images of the abdomen post intravenous administration 20 cc gadolinium Date and time: January 02, 2025, 1309 hours, comparison PET/CT scan March 28, 2024,, MR abdomen February 04, 2024 INDICATIONS: Diagnosis malignant neoplasm of upper-inner quadrant left female breast, 4.3 x 3.8 cm mass above and posterior to the spleen which shows irregular enhancement on MRI abdomen February 04, 2024, 30 mm hypermetabolic activity posterior to the spleen on PET/CT scan March 28, 2024 FINDINGS: Again noted enhancing mass left upper abdomen posterior to the stomach and spleen, currently measuring 6.5 cm x 5.3 cm, compared to 6.5 cm x 4.6 cm on February 04, 2024 No interval enhancing liver lesions No gallstones No pancreatic or adrenal mass. No hydronephrosis Aorta normal size No interval abdominal lymphadenopathy. No interval ascites IMPRESSION: Again noted enhancing mass left upper abdomen posterior to the stomach, measuring 6.5 x 5.3 cm compared to 6.5 x 4.6 cm on February 04, 2024
--- NOTE | 2025-01-02 14:00 | EKG_ITS ---
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
== END | disposition home or self-care (01) ==
PROVIDERS: Referring Provider Internal Medicine Hematology & Oncology; Visit Provider Internal Medicine Hematology & Oncology
DX: R19.09 Other intra-abdominal and pelvic swelling, mass and lump (principal); C50.212 Malignant neoplasm of upper-inner quadrant of left female breast
CPT/HCPCS: 74182; 93005; A9577

== ENCOUNTER → 2025-01-05 | Outpatient (CLI) | payer MEDICAID, SELFPAY ==
--- NOTE | 2025-01-05 13:16 | ECHO_ITS ---
Patient Info Name: Lyla Beckett Age: 44 years : 1980 Gender: Female Ht: 155 cm Wt: 66 kg BSA: 1.71 m2 BP: 146 / 91 mmHg HR: 79 bpm Exam Date: 01/05/2025 1:27 PM Admit Date: 01/05/2025 Site: [facility] Room Number: ECHO Patient Status: O Exam Type: CA echo doppler complete Director Of Automation: Pdamini Fink Ordering Physician: Devin Santiago Referring Physician: Devin Santiago Study Info Indications MALIGNANT NEOPLASM OF UPP-INNER QUADRANT L/BREAST - Primary Location: SDIM Left Ventricular Outflow Tract Name Value Normal LVOT 2D LVOT Diameter 1.9 cm LVOT Doppler LVOT Peak Velocity 94 cm/s LVOT Mean Gradient 2 mmHg LVOT VTI 20 cm LVOT VTI/AV VTI Ratio 1.1 LVOT Stroke Volume 57 ml Pulmonic Valve Name Value Normal PV Doppler PV Peak Velocity 76 cm/s Mitral Valve Name Value Normal MV Doppler MV Decel Wake 425 cm/s2 MV PHT 36 ms MV Area (PHT) 6.2 cm2 4.0-5.0 MV Diastolic Function MV E Peak Velocity 52 cm/s MV A Peak Velocity 63 cm/s MV E/A 0.8 MV Annular TDI MV Lateral e' Velocity 11.7 cm/s MV E/e' (Lateral) 4.5 Tricuspid Valve Name Value Normal TV Regurgitation Doppler TR Peak Velocity 202 cm/s Estimated PAP/RSVP RA Pressure 3 mmHg <=5 PA Systolic Pressure 19 mmHg <36 RV Systolic Pressure 19 mmHg <36 TV Diastolic Function TV A Peak Velocity 8 cm/s Aortic Valve Name Value Normal AV 2D/MM AV Cusp Sep (MM) 1.1 cm AV Doppler AV Peak Velocity 98 cm/s AV Mean Gradient 2 mmHg AV VTI 19 cm AV Area (Cont Eq VTI) 3.0 cm2 >=3.0 AV Area (Cont Eq Marcelo) 2.7 cm2 AV DI (Marcelo) 0.96 AV Regurgitation 2D LVOT Area 2.8 cm2 Ventricles Name Value Normal LV Dimensions 2D/MM IVS Diastolic Thickness (2D) 0.7 cm 0.6-0.9 LVID Diastole (2D) 4.2 cm 3.8-5.2 LVIW Diastolic Thickness (2D) 0.8 cm 0.6-0.9 LVID Systole (2D) 2.6 cm 2.2-3.5 LVOT Diameter 1.9 cm LV Mass (2D Cubed) 93.04 g 67.00-162.00 LV Mass Index (2D Cubed) 54 g/m2 43-95 Relative Wall Thickness (2D) 0.38 <=0.42 IVS/LVIW Diastolic Thickness (2D) 0.88 0.00-1.50 LV Fractional Shortening/Ejection Fraction 2D/MM LV Fractional Shortening (2D) 38 % 27-45 LV EF (2D Teichholz) 69 % Atria Name Value Normal LA Dimensions LA Volume (4C A-L) 30 ml LA Volume (BP A-L) 31 ml Left Ventricle Left ventricular chamber dimension is normal. Left ventricular systolic function is normal with visually estimated ejection fraction of 60-65%. There is normal geometry noted in the left ventricle. Left ventricular segmental wall motion is normal. There is grade I diastolic dysfunction in the left ventricle. Right Ventricle Right ventricular chamber dimension is normal. Right ventricular systolic function is normal. Left Atrium Left atrial chamber dimension is normal. Right Atrium Right atrial chamber dimension is normal. Aortic Valve The aortic valve is trileaflet. There is no aortic valve sclerosis. There is no aortic valve stenosis with a peak velocity of 98 cm/s, mean gradient of 2 mmHg, and aortic valve area of 3.0 cm2. There is no aortic valve regurgitation. Pulmonic Valve The pulmonic valve is normal. There is no pulmonic valve stenosis. There is no pulmonic regurgitation. Mitral Valve The mitral valve has normal leaflets. There is no mitral valve stenosis. There is trace mitral valve regurgitation. Tricuspid Valve The tricuspid valve leaflets are normal. There is no tricuspid valve stenosis. There is trace tricuspid valve regurgitation. No pulmonary hypertension, estimated pulmonary arterial systolic pressure is 19 mmHg and systemic blood pressure of 146 mmHg in systole. Pericardium/Pleural The pericardium appears normal. There is no pericardial effusion. No pleural effusion visualized. Inferior Vena Cava Normal inferior vena cava with >50% collapse upon inspiration consistent with normal right atrial pressure, 3 mmHg. Aorta The aortic measurements are indexed to age and body surface area. The aortic root at the sinus of Valsalva is not well visualized. The prox ascending aorta is not well visualized. Summary 1. Left ventricle size is normal and systolic function is normal. Estimated ejection fraction is 60-65%. There is grade I diastolic dysfunction. There is normal geometry noted. 2. Right ventricle chamber size is normal and systolic function is normal. Estimated RVSP is 19 mmHg. 3. There is trace mitral valve regurgitation. 4. There is trace tricuspid valve regurgitation. 5. Normal IVC with estimated RA pressure 3 mmHg. Report Signatures Finalized by Heraclio Sterling on 01/05/2025 05:34 PM
== END | disposition home or self-care (01) ==
PROVIDERS: Referring Provider Internal Medicine Hematology & Oncology; Visit Provider Internal Medicine Hematology & Oncology
DX: I50.30 Unspecified diastolic (congestive) heart failure (principal); I08.1 Rheumatic disorders of both mitral and tricuspid valves; C50.212 Malignant neoplasm of upper-inner quadrant of left female breast
CPT/HCPCS: 93306

== ENCOUNTER 2025-01-25 08:14 | Outpatient (RCR) | payer MEDICAID, SELFPAY ==
[2025-01-25 12:09] LABS: Basophils # (Auto) 0.1 Thou/mm3 (0.0-0.2); Basophils % (Auto) 1 % (0-2.5); Eosinophils # (Auto) 0.5 Thou/mm3 (0.0-0.5); Eosinophils % (Auto) 8 % (0-10); Hematocrit 38.2 % (36.0-46.0); Hemoglobin 12.8 g/dL (12.0-16.0); Immature Granulocytes Auto 0.01 Thou/mm3 (0.00-0.00); Lymphocytes # (Auto) 1.3 Thou/mm3 (1.0-4.8); Lymphocytes % (Auto) 22 % (10-50); Mean Corpuscular HGB Conc 33.5 g/dl (31.0-37.0); Mean Corpuscular Hemoglobin 33.1 pg (25.0-35.0); Mean Corpuscular Volume 99 fL (80-100); Monocytes # (Auto) 0.5 Thou/mm3 (0.0-0.8); Monocytes % (Auto) 9 % (0-12); Neutrophils # (Auto) 3.5 Thou/mm3 (1.8-7.7); Neutrophils % (Auto) 60 % (37-80); Nucleated Red Blood Cell # 0.00 Thou/mm3 (0.00-0.00); Nucleated Red Blood Cell % 0 /100 WBC (0); Platelet Count 274 Thou/mm3 (140-440); RDW Standard Deviation 47.2 fL (36.4-46.3); Red Blood Count 3.87 Miln/mm3 (4.00-5.20); White Blood Count 5.9 Thou/mm3 (3.6-11.0)
[2025-01-25 12:22] LABS: Alanine Aminotransferase 30 U/L (10-49); Albumin, Serum 4.6 gm/dL (3.5-5.0); Albumin/Globulin Ratio 1.8 (1.2-2.2); Alkaline Phosphatase 81 U/L (46-116); Anion Gap 4 (7-16); Aspartate Amino Transferase 32 U/L (0-34); BUN/Creatinine Ratio 10 Ratio (12-20); Bilirubin,Total 0.3 mg/dL (0.3-1.2); Blood Urea Nitrogen 10 mg/dL (9-23); Calcium 9.7 mg/dL (8.3-10.6); Calcium (Corrected) 9.7 mg/dL (8.5-10.1); Carbon Dioxide 29.6 mMol/L (20.0-31.0); Chloride 110 mMol/L (98-107); Creatinine (Component) 1.0 mg/dL (0.6-1.3); Globulin 2.5 gm/dL (2.3-3.5); Glucose 85 mg/dL (74-106); LDH (Lactate Dehydrogenase) 175 U/L (120-246); Osmolality,Calculated 284 (275-295); Potassium 4.0 mMol/L (3.4-5.1); Sodium 144 mMol/L (136-145); Total Protein 7.1 gm/dL (5.7-8.2); Uric Acid 6.1 mg/dL (3.1-7.8); eGFR > 60 See Note
== END 2025-01-29 23:59 | disposition home or self-care (01) ==
LOC: SCTC 08:14
PROVIDERS: Internal Medicine Hematology & Oncology; Visit Provider Radiology Therapeutic Radiology
DX: C50.212 Malignant neoplasm of upper-inner quadrant of left female breast (principal); C78.00 Secondary malignant neoplasm of unspecified lung; Z17.421 Hormone receptor negative with human epidermal growth factor receptor 2 negative status; Z92.21 Personal history of antineoplastic chemotherapy; Z90.12 Acquired absence of left breast and nipple; R79.89 Other specified abnormal findings of blood chemistry; M79.10 Myalgia, unspecified site; G62.9 Polyneuropathy, unspecified
CPT/HCPCS: 36591; 80053; 83615; 84550; 85025; 99213; A4216; J1642; G0463

== ENCOUNTER → 2025-01-25 | Outpatient (CLI) | payer MEDICAID, SELFPAY ==
--- NOTE | 2025-01-25 08:54 | EKG_ITS ---
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
== END | disposition home or self-care (01) ==
LOC: SEKG 08:47
PROVIDERS: Referring Provider Internal Medicine Hematology & Oncology; Visit Provider Internal Medicine Hematology & Oncology
DX: C50.212 Malignant neoplasm of upper-inner quadrant of left female breast (principal)
CPT/HCPCS: 93005

== ENCOUNTER → 2025-02-09 | Outpatient (CLI) | payer MEDICAID, SELFPAY ==
--- NOTE | 2025-02-09 09:32 | EKG_ITS ---
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
== END | disposition home or self-care (01) ==
PROVIDERS: Referring Provider Internal Medicine Hematology & Oncology; Visit Provider Internal Medicine Hematology & Oncology
DX: C50.212 Malignant neoplasm of upper-inner quadrant of left female breast (principal)
CPT/HCPCS: 93005

== ENCOUNTER 2025-02-14 08:48 | Outpatient (RCR) | payer MEDICAID, SELFPAY ==
[2025-02-09 09:30] LABS: Basophils # (Auto) 0.0 Thou/mm3 (0.0-0.2); Basophils % (Auto) 1 % (0-2.5); Eosinophils # (Auto) 0.4 Thou/mm3 (0.0-0.5); Eosinophils % (Auto) 7 % (0-10); Hematocrit 35.5 % (36.0-46.0); Hemoglobin 12.2 g/dL (12.0-16.0); Immature Granulocytes Auto 0.01 Thou/mm3 (0.00-0.00); Lymphocytes # (Auto) 1.2 Thou/mm3 (1.0-4.8); Lymphocytes % (Auto) 22 % (10-50); Mean Corpuscular HGB Conc 34.4 g/dl (31.0-37.0); Mean Corpuscular Hemoglobin 34.0 pg (25.0-35.0); Mean Corpuscular Volume 99 fL (80-100); Monocytes # (Auto) 0.5 Thou/mm3 (0.0-0.8); Monocytes % (Auto) 9 % (0-12); Neutrophils # (Auto) 3.3 Thou/mm3 (1.8-7.7); Neutrophils % (Auto) 61 % (37-80); Nucleated Red Blood Cell # 0.00 Thou/mm3 (0.00-0.00); Nucleated Red Blood Cell % 0 /100 WBC (0); Platelet Count 324 Thou/mm3 (140-440); RDW Standard Deviation 45.1 fL (36.4-46.3); Red Blood Count 3.59 Miln/mm3 (4.00-5.20); White Blood Count 5.4 Thou/mm3 (3.6-11.0)
[2025-02-09 09:55] LABS: Alanine Aminotransferase 21 U/L (10-49); Albumin, Serum 4.4 gm/dL (3.5-5.0); Albumin/Globulin Ratio 1.6 (1.2-2.2); Alkaline Phosphatase 82 U/L (46-116); Anion Gap 6 (7-16); Aspartate Amino Transferase 24 U/L (0-34); BUN/Creatinine Ratio 15 Ratio (12-20); Bilirubin,Total 0.3 mg/dL (0.3-1.2); Blood Urea Nitrogen 16 mg/dL (9-23); Calcium 9.9 mg/dL (8.3-10.6); Calcium (Corrected) 9.9 mg/dL (8.5-10.1); Carbon Dioxide 27.3 mMol/L (20.0-31.0); Chloride 111 mMol/L (98-107); Creatinine (Component) 1.1 mg/dL (0.6-1.3); Globulin 2.7 gm/dL (2.3-3.5); Glucose 98 mg/dL (74-106); LDH (Lactate Dehydrogenase) 201 U/L (120-246); Osmolality,Calculated 288 (275-295); Potassium 4.1 mMol/L (3.4-5.1); Sodium 144 mMol/L (136-145); Total Protein 7.1 gm/dL (5.7-8.2); eGFR > 60 See Note
[2025-02-09 10:01] LABS: Uric Acid 7.0 mg/dL (3.1-7.8)
--- NOTE | 2025-02-14 10:30 | CTCFLWUP_ITS ---
Patient: LYLA BECKETT : 1980 Page 11 of 13 FOLLOW UP NOTE DATE OF SERVICE: 02/14/2025 NAME: LYLA BECKETT ACCOUNT: [id number] : 1980 AGE: 45 INTERVAL HISTORY: Marilyn Arita, a female with nausea and shortness of breath, has a history of a splenic mass. Recent CT showed multiple pulmonary nodules (20 total) compared to a single nodule in March, and a splenic cystic mass increased to 4.2 cm. pulmonary nodules biopsy showed metastatic carcinoma of breast . ER/CA/HER-2 negaitve. 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 patient is tolerating well. No new symptoms Recent imaging studies have revealed significant changes in the patient's condition. A CT scan of the chest showed multiple nodules in both lungs, with approximately 20 nodules identified, compared to a single nodule observed in a PET scan from March 2024. A cystic mass on the spleen has increased in size from 30 cm to 33 cm, now measuring 4.2 cm. Will see scan in apr 2025 Medications and Supplements - Nausea medicine 45-year-old lady with triple negative left breast CA diagnosed 2021 with neoadjuvant pembrolizumab Taxol carboplatin with chemo stopped due to rising LFTs. Patient also developed intestinal obstruction underwent colectomy and no further chemo given. Total mastectomy followed by axillary dissection 12/10/2021 [id number]. PET scan 05/14/2023 interval hypermetabolic soft tissue nodule anterior sternum 18 x 14 mm along with posterior liver. Underwent wide excision of chest wall recurrence 07/20/[address] Escobedo 1.9 cm completely excised. Liver lesion CT-guided needle biopsy no malignancy identified. Postop left chest wall and regional node radiation therapy completed 10/27/2023. CT chest 09/14/2024 multiple metastatic pulmonary nodules compared to prior PET enlarging complex mass at the level of left diaphragm compared to prior PET.Most recent MRI of the brain 11/23/2024 negative for mets. Signatera negative 10/21/2024. Review of Systems General: Positive for nausea. HEENT: Positive for congestion. Respiratory: Positive for shortness of breath. Gastrointestinal: Positive for uneasy stomach. Regarding her cancer status, the patient notes that her recent Netera test came back negative, which is an improvement from her previous result of 0.008. She has not been on any recent cancer treatment. Her past treatments include a total mastectomy followed by axillary dissection, 3 cycles of adjuvant Taxol, and a colectomy. The patient also mentions a previous adverse reaction to Keytruda, which resulted in colitis. In terms of lifestyle, the patient reports watching her diet and avoiding processed foods as recommended by her healthcare provider. Medications and Supplements - Taxol - 3 cycles of adjuvant treatment - Keytruda - Caused colitis as a side effect Review of Systems General: Positive for fatigue. HEENT: Positive for confusion. Neurological: Positive for dizziness. Psychiatric: Positive for hallucinations. Objective: Laboratory, Imaging, and Diagnostic Test Results - Netera test: - Previous result: 0.008 - Current result: Negative - PET scan: - Finding: small nodule in the lung and in the spleen area - MRI: - Finding: Something noted in the suppurine area (previous scan) ONCOLOGY HISTORY:?[facility] Hx? DIAGNOSIS: Malignant neoplasm of upper-inner quadrant of left female breast [ICD10] C50.212 DATE OF DIAGNOSIS: 07/24/2021 STAGE/TNM: Stage II breast cancer triple negative TREATMENT HISTORY: Care?Plan Start?Date Cycle Day Intent TNBC?Pem?17?cy?TaxCar?4?cy?AC?4?cy?Keynote?522 09/18/2021 1 21 Curative?(primary) AC-Taxol?Dose?Dense?q?2wks 02/20/2022 1 14 Curative?(adjuvant) Taxol?80?mg/m2?wkly?for?12?weeks?adj 05/21/2022 1 7 Curative?(adjuvant) Taxol?80?mg/m2?wkly?for?12?weeks?adj 06/17/2022 1 7 Curative?(adjuvant) HISTORY OF PRESENT ILLNESS: Lyla Beckett is a 45-year-old ENG speaking female without any family history of breast cancers has the following oncology history. July 2020: Patient started noticing a lump in the upper inner quadrant of the left breast which was associated with pain. Due to insurance reasons she was not able to see her physicians. 05/21/2021: Bilateral screening mammogram- 06/04/2021: Left breast diagnostic mammogram as well as ultrasound? 07/24/2021: Ms. Beckett had ultrasound-guided left breast biopsy and postbiopsy marker clip placement. 09/01/2021: CT scan of the chest abdomen and pelvis with IV contrast 09/06/2021: PET/CT scan 09/17/2021: AST 17, ALT 17, alkaline phosphatase 64 09/18/2021: Ms. Beckett received first cycle of pembrolizumab, Taxol and carboplatin in the adjuvant setting 10/08/2021: AST 22, ALT 31, alkaline phosphatase 66 10/09/2021: Ms. Beckett was treated with second cycle of pembrolizumab, Taxol and carboplatin based chemotherapy. Unfortunately she was having trouble tolerating the chemotherapy. Her LFTs have significantly worsened. Chemotherapy was discontinued and patient was referred to Dr. Gregg Simpson for definitive surgery. 10/22/2021: AST 53, ALT 190, alkaline phosphatase 130. 10/28/2021 AST 435, ALT 394, alkaline phosphatase 207 10/29/2021 AST 239, ALT 366, alkaline phosphatase 208. 10/30/2021 AST 119, ALT 277, alkaline phosphatase 199 11/05/2021: AST 21, ALT 41, alkaline phosphatase 110 12/10/2021: Left-sided total mastectomy, sentinel node biopsy followed by axillary dissection. 03/19/2022: BRCA 1and2 testing? 04/02/2022 - 05/19/2022: Ms. Beckett had 4 cycles of dose dense AC chemotherapy in the adjuvant setting. 06/10/2022 - 06/24/2022: Ms. Beckett had 3 cycles of weekly Taxol. 06/25/2022: She was admitted to the hospital due to abdominal pain. Had exploratory laparotomy and resection of the ischemic left colon and closure of the distal stump as well as diuretic and loop colostomy on 06/30/2022 Ms. Beckett had a protracted recovery.. She was eventually discharged from the hospital on 08/19/2022. 05/14/2023: PET/CT scan? 05/20/2023: Ultrasound-guided biopsy of the left chest wall lesion [facility] 06/15/[facility]: CT-guided biopsy of the right lobe liver lesion? 07/04/2023: MRI of the abdomen with and without contrast 07/28/2023: Resection of the left chest wall lesion? 08/26/2023 - 10/27/2023: The patient had radiation therapy to the left chest wall, left left supraclavicular area. 10/06/2023: PET/CT scan 10/15/2023: X-ray ribs showed osteoblastic lesion posterior right 10th rib. 10/28/2023: CT scan of the abdomen and pelvis with IV contrast 11/06/2023: Bone scan? 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 Tobacco?Pack?per?Day:?1 Tobacco?Use?Years:?20 ETOH?Use:?social Drug?Note:?denies Social History Note:?lives with and child [employer] HISTORY: Menarche?-?Age:?9 Menopause:?04/21/21 :?3 Live?Births:?3 Age?1st?:?15 MEDICATIONS: 1. entrectinib - 200 mg 3 Capsule Daily 2. levothyroxine - 100 mcg 1 tab Daily 3. lorazepam - 0.5 mg 1 tab Three times a day 4. ondansetron - 8 mg 1 tab Daily 5. oxycodone - 5 mg 1 tab q6?Palabra Meds? Medications Last Reconciled by Brook Romeo MD on 02/14/2025 ALLERGIES: No Known Drug Allergies REVIEW OF SYSTEMS: A complete 14-point review of systems was performed and is negative except as noted in interval history. PHYSICAL EXAMINATION:?[facility] PE? VITAL SIGNS: Temperature?96.9, B/P?117/76, Oxygen?Saturation?97% Weight?155?lbs (Change?since?02/09/25:?3.2?lbs) PAIN: 4 - Moderate pain ECOG Performance Status: 0 - Asymptomatic and fully active Alert oriented x 4 MOUTH: Oral cavity is dry. CHEST: No palpable masses or concerning lymph nodes CARDIAC: Rhythm regular, no murmurs or gallops present. ABDOMEN: Soft. No hepatomegaly. No splenomegaly. EXTREMITIES: No pedal edema or cyanosis. LABORATORY DATA: I have personally reviewed and interpreted each of the patient?s relevant lab tests, abnormal findings are below: Date 01/25/25 02/09/25 ??WHITE?BLOOD?COUNT?(Thou/mm3) ? 5.4 ??RED?BLOOD?COUNT?(Miln/mm3) ? 3.59?L ??HEMOGLOBIN?(gm/dl) ? 12.2 ??HEMATOCRIT?(%) ? 35.5?L ??PLATELET?COUNT?(Thou/mm3) ? 324 ??NEUTROPHILS?%,?AUTO?(%) ? 61 ??LYMPH?%,?AUTO?(%) ? 22 ??NEUTROPHILS,?AUTO?(Thou/mm3) ? 3.3 ??GLUCOSE,RANDOM?(mg/dL) 85 98 ??BLOOD?UREA?NITROGEN?(mg/dL) 10 16 ??CREATININE?(mg/dL) 1.00 1.10 ??SODIUM?(mmol/L) 144 144 ??POTASSIUM?(mmol/L) 4.0 4.1 ??CHLORIDE?(mmol/L) 110?H 111?H ??CrCl?(CandG)?(ml/min) 63.84 58.47 ??AST/SGOT?(Unit/L) 32 24 ??ALT/SGPT?(Unit/L) 30 21 ??ALKALINE?PHOSPHATASE?(Unit/L) 81 82 ??BILIRUBIN,?TOTAL?(mg/dL) 0.3 0.3 ??PROTEIN?TOTAL?(gm/dl) 7.1 7.1 ??ALBUMIN,?SERUM?(gm/dl) 4.6 4.4 ??GLOBULIN?(gm/dl) 2.5 2.7 ??ALBUMIN/GLOBULIN?RATIO 1.8 1.6 ??CALCIUM,?SERUM?(mg/dL) 9.7 9.9 ??CALCIUM?SERUM?(CORRECTED)?(mg/dL) 9.7 9.9 ??LDH,?TOTAL?(Unit/L) ? 201 ASSESSMENT/PLAN:?Leandra Santiago Assessment/Plan? Triple negative breast cancer Patient was diagnosed in 2021 and was given keynote trial based chemotherapy Patient developed liver failure from Keytruda and treatment was held Patient resumed Taxol chemotherapy after her breast surgery After receiving the cycle she had intestinal obstruction and underwent a colectomy No further chemo was given Patient then had recurrence in July 2023 which was resected with wide margins negative. It was the same triple negative breast cancer and has NTRK mutation patient's recent MRI and PET CT scan show persistent mass around the spleen The recent MRI compared to the MRI 3 months ago shows smaller lesion Recent CT scan revealed approximately 20 nodules in both lungs, a significant increase from the single nodule observed in the left lung on PET scan in March 2024. The pulmonary nodules are small and not visible on PET scans. A 10 mm nodule in the left upper lobe has been identified for biopsy. Biopsy of the lung nodule is consistent with metastatic cancer coming from breast Last biopsy did show an NTRK mutation Plan patient on entrectinib and tolerating well Will scan in March and return visit in April to see response to treatment CT scan and echocardiogram ordered to evaluate response to treatment and any side effects. Splenic Mass Assessment: CT scan shows a cystic mass on the spleen that has increased from 30 cm to 33 cm, now measuring 4.2 cm. A biopsy performed in April was negative. Natira testing was negative in June after previously being positive. ORDERS: Order # Description [id number] Follow Up [id number] Scan + Chest + With Contrast [id number] Cardiac ECHO RETURN TO CLINIC: I reviewed the diagnosis, prognosis, and recommended treatment/procedure options with the patient (and/or their legal medical billing representative), including the potential benefits, risks, side effects and alternative therapies. We also discussed the option of no treatment and the possibility of clinical trial participation, if applicable. All questions were addressed, and they demonstrated understanding. They provided informed consent to proceed with the proposed plan of care. BILLING AND COMPLIANCE: I reviewed external records from providers outside my specialty as summarized above. I spent a total of 50 minutes on this patient?s care on the day of their visit excluding time spent related to any billed procedures. This time includes time spent with the patient as well as time spent documenting in the medical record, reviewing patients records and tests, obtaining history, placing orders, communicating with other healthcare professionals, counseling the patient, family or caregiver, and/or care coordination for the diagnoses above. Electronically Signed by: Devin Santiago MD T: 10:27 AM CC: RAFAEL Liu PCP: Michael Wright Referring: Michael Wright This document was completed utilizing speech recognition software. Grammatical errors, random word insertions, pronoun errors, and incomplete sentences are an occasional consequence of this system due to software limitations, ambient noise, and hardware issues. Any formal questions or concerns about the content, text or information contained within the body of this dictation should be directly addressed to the provider for clarification.
== END 2025-03-01 23:59 | disposition home or self-care (01) ==
LOC: SCTC 08:48
PROVIDERS: Internal Medicine Hematology & Oncology; Visit Provider Radiology Therapeutic Radiology
DX: C50.212 Malignant neoplasm of upper-inner quadrant of left female breast (principal); Z17.421 Hormone receptor negative with human epidermal growth factor receptor 2 negative status; C78.02 Secondary malignant neoplasm of left lung; C78.01 Secondary malignant neoplasm of right lung; D73.89 Other diseases of spleen; Z90.12 Acquired absence of left breast and nipple
CPT/HCPCS: 36591; 80053; 83615; 84550; 85025; 99212; A4216; J1642; G0463

== ENCOUNTER → 2025-03-01 | Outpatient (CLI) | payer MEDICAID, SELFPAY ==
--- NOTE | 2025-03-01 12:45 | EKG_ITS ---
[facility] Test Date: 2025-03-01 Pat Name: KENNETH GARCIA Department: Room: - Gender: Female Risk Modeler: NAYT PALOMINOB: 1980 Requested By: Devin Santiago Order Number: [id number] Reading MD: eDvin Santiago Measurements Intervals [place] Rate: 72 P: 76 AL: 163 QRS: 78 QRSD: 78 T: 58 QT: 384 QTc: 422 Interpretive Statements SINUS RHYTHM Compared to ECG 02/09/2025 09:37:04 No significant changes /store/S0/[id number]
== END | disposition home or self-care (01) ==
PROVIDERS: Referring Provider Internal Medicine Hematology & Oncology; Visit Provider Internal Medicine Hematology & Oncology
DX: C50.212 Malignant neoplasm of upper-inner quadrant of left female breast (principal)
CPT/HCPCS: 93005